=== PATIENT | female | born 2000 | race Caucasian/White ===

== ENCOUNTER 2025-09-18 06:47 | Emergency (ER) | payer OTHER, SELFPAY ==
--- OUTSIDE RECORDS SUMMARY | 2012-09-24 15:00 | XMS_ITS | Encounter Summary ---
Author Organization [facility] Address [address] [place] [address] Phone Care Team Providers Care Phone Operator Name Role Phone Unavailable Primary Care Provider Unavailabl e Encounter Details Date Type Department Care Team (Late st Contact Info) Description 09/24/2012 2:00 PM [facility] Hospital Encounter [facility] [address] [phone] Anca Antonio MD [address] [place] [phone] Social History Tobacco Use Types Packs/Day Years Used Date Smoking Tobacco: Never Smokeless Tobacco: Never Alcohol Use Standard Drinks/Week Comments Yes 2 (1 standard drink = 0.6 oz pur e alcohol) Hunger/Food Answer Date Recorded In the last 12 months, did y ou or your family ever eat less than you felt you should because there wasn't enough money for food? No 11/26/2023 Stable Housing Answer Date Recorded Are you worried that in the next 2 months you may not have stable housing? No 11/26/2023 Transportation Concerns Answer Date Rec orded In the last 12 months, have you or your family ever had to go without healthcare because you didn't have a way to get there? No 11/26/2023 Hazards in Home Answer Date Recorded Think about the place you li ve. Do you have problems with any of the following? Pests (mice or roaches), mold, no/not working smoke detectors, water leaks, no window guards. No 2023 Financing Utilities Answer Date Recorde d In the last 12 months, has t he electric, gas, oil, or water company threatened to shut off your services in your home? No 11/26/2023 Safety at Home Answer Date Recorded Are you or your family worried about feeling saf e in your home? No 11/26/2023 Outside Support Answer Date Recorded Do you feel that you need mo re support from other people or programs to help you care for yourself or your family? No 11/26/2023 Understanding Health Concerns Answer Da te Recorded Do you need help understandi ng your or your child's healthcare needs (diagnosis, medications, plan, etc.)? No 11/26/2023 Financing Health Concerns Answer Date R ecorded In the last 12 months, was t here a time when your child needed to see a doctor or get medications or supplies but could not because of cost? No 11/26/2023 Missing School or Work Answer Date Faizan rded Did you or your child miss s chool or work because of a health problem that could have been avoided? No 11/26/2023 Comments Unknown Sex and Gender Information Value Date Recorded Sex Assigned at Not on file Legal Sex Female 6:32 PM EDT Gender Identity Female 11/23/2022 9:44 AM EST Sexual Orientation Straight 02/10/2020 12 :46 PM EDT documented as of this encounter Functional Status documented as of this encounter Plan of Treatment Not on file documented as of this encounter Visit Diagnoses Not on filedocumented in this encounter
--- OUTSIDE RECORDS SUMMARY | 2017-10-07 01:00 | XMS_ITS | Encounter Summary ---
Author Organization [facility] Address [address] [place] [address] Phone Care Team Providers Care Fitter Hand Name Role Phone Unavailable Primary Care Provider Unavailabl e Encounter Details Date Type Department Care Team (Late st Contact Info) Description 10/07/2017 Hospital Encounter [facility] [address] [place] [phone] Anca Antonio MD [address] [place] [phone] Social History Tobacco Use Types Packs/Day Years [...]
--- OUTSIDE RECORDS SUMMARY | 2024-03-24 01:00 | XMS_ITS ---
Author Organization [facility] Address [address] [address] Care Team Providers Care Tool Repair Technician Name Role Phone NATALIA FRANCISCO, ERIN Primary Care Provider Tavo Soliz Unavailable [phone] REASON FOR VISIT ESTAB PT: OV FOR CHANGE IN BOWEL HABITS, NAUSEA, WT. LOSS, HEART BURN, NIGHT SWEATS (NO PRIOR) PCP NATALIA ROSSI [facility] Encounters Encounter Location Date Provider Diagnosis [facility] [address] [place] [phone] 03/24/2024 Tavo Sears Plan Of Treatment No Information Progress Notes * KAI NORTONOB:[birth year] (25 yo F)Acc No.[id number]:03/24/2024 Progress Notes Patient: ABY BOX Provider: Suzi Sears MD :2000 A ge:24 Y S ex:Female Date:03/24/2024 Address:[address], [place], [id number] Pcp:ERIN FISHER MD Subjective: * Chief Complaints: * 1 . ESTAB PT: OV FOR CHANGE IN BOWEL HABITS, NAUSEA, WT. LOSS, HEART BURN, NIGHT SWEATS (NO PRIOR) PCP NATALIA ROSSI [facility]. * Medical History: Objective: * Vitals: Assessment: Plan: * Treatment: * * Electronic signature of Mandeep Sears M.D. on 09/18/2025 at 07:54 AM EDT Sign off status: Pending * Provider: Suzi Sears MD Date: 0 03/24/2024 Generated for [place]oacanoi isaac/Anthony/eTransmitting on: 11/18/2024 07:54 AM EDT
--- OUTSIDE RECORDS SUMMARY | 2025-03-27 17:30 | XMS_ITS ---
Author Organization [facility] Address [address] [facility] [address] [place] [address] Care Team Providers Care Flight Purser Name Role Phone ERIN FISHER MD Primary Care Provider UnavailTavo Montelongo Unavailable [phone] Migration, Provider Unavailable Unavailable Allergies Allergen (clinical drug ingredient) Drug/Non Drug Allergy documented on EMR Reaction Allergy Type Onset Date Status hydrocortisone Hydrocortisone Unknown Drug Allergy Active Propylene Glycol Unknown Drug Allergy Active REASON FOR VISIT Multum To Medispan Conversion Encounter Medications Medication SIG (Take, Route, Fr equency, Duration) Notes Start Date End Date Status Omeprazole 20 MG 1 cap(s) orally once a day,take 30min before dinner; Duration: 30 days 01/10/2024 Active FLUoxetine HCl 40 MG 1 cap(s) orally onc e a day; Duration: 30 day(s) 12/17/2023 Active LORazepam 0.5 MG TAKE 1 TABLET BY SHANELL TH NEEDED FOR PANIC ATTACKS; Duration: 5 Days Active Encounters Encounter Location Date Provider Diagnosis [facility] [address] [facility] [address] [place] [address] 03/27/2025 Provider Migration Plan Of Treatment Medication Medication Name Sig Start Date Stop Date Notes Omeprazole 20 MG 1 cap(s) orally once a day,take 30min before dinner; Duration: 30 days 01/10/2024 Progress Notes * KAI NORTONOB:[birth year] (25 yo F)Acc No.[id number]:03/27/2025 Patient: ABY BOX Provider: :2000 A ge:25 Y S ex:Female Date:03/27/2025 Address:[address], [place], [id number] Pcp:ERIN FISHER MD Subjective: * Chief Complaints: * 1 . Multum To Medispan Conversion Encounter. * Medical History: * Medications: T aking LORazepam 0.5 MG Tablet TAKE 1 TABLET BY MOUTH NEEDED FOR PANIC ATTACKS , Taking FLUoxetine HCl 40 MG Capsule 1 cap(s) orally once a day * Allergies: H ydrocortisone, Propylene Glycol. Objective: * Vitals: Assessment: Plan: * Treatment: * * Electronic signature of Prov ider Migration on 09/18/2025 at 07:54 AM EDT Sign off status: Pending * Provider: Date: 0 03/27/2025 Generated for Sunil gray/Anthony/Pat on: 1 11/18/2024 07:54 AM EDT
[2025-09-18 06:51] VITALS: BP 141/87; PULSE 101; RESP 18; TEMP 36.7; O2SAT 100; BMI 23.5
--- NOTE | 2025-09-18 07:12 | ED.GENADULT ---
HPI - General Adult General Chief complaint: Anxiety Stated complaint: diff speaking vomiting panic attack Time Seen by Provider: 09/18/25 07:07 History of Present Illness HPI narrative: Patient is a 25-year-old female has a history of anxiety panic attacks. Also has a history of marijuana use. History of nausea vomiting for the last 5 hours. Patient from home. No fever no chills. No diaphoresis. Positive abdominal pain over the epigastric area. Patient claims she attempted to vomit about 20 times. Minimal results. There is no change in bowel movement there is no blood in the stool. Related Data Previous Rx's ?Medication ?Instructions ?Recorded ondansetron 4 mg disintegrating 4 mg PO TID PRN nausea and 09/18/25 tablet vomiting 5 days #10 tabs Allergies Allergy/AdvReac Type Severity Reaction Status Date / Time shellfish derived (shellfish) Allergy Hives Verified 09/18/25 06:55 iodine AdvReac Unknown Verified 09/18/25 06:55 latex AdvReac Unknown Verified 09/18/25 06:55 Review of Systems Review of Systems: Positive abdominal pain Yes all other systems are reviewed and are negative [facility] Past Medical History Attestation statement: The following information was validated with the patient. Social History Social History Smoked in Last 30 Days: No Use of substances other than those prescribed or required for medical reasons: Yes Substance Use Type: Marijuana Advance Directives: No Advance Directives Information Provided: Yes Patient : No Physical Exam ED Exam Exam: Appearance: Alert. Oriented X3. No acute distress. Eyes: Pupils equal, round and reactive to light. ENT: Pharynx normal. Neck: Normal inspection. Neck supple. No lymph nodes noted. No crepitus CVS: Normal heart rate and rhythm. Pulses normal. Normal S1 and S2 Respiratory: No respiratory distress. Breath sounds normal. No Wheezing. No rales Abdomen: Soft and nontender. No rigidity. No distention. good BS x4 Skin: Skin warm and dry. Normal skin color. Normal skin turgor. Extremities: No lower extremity edema. Neurovascular intact to all extremities. No Lacerations. No Rash Neuro: Oriented X 3. No motor deficit. No sensory deficit. Moving all extermities. No slurred speech Vital Signs: Vital Signs - 24 hr 09/18/25 06:51 09/18/25 08:25 Temperature 98.1 F Pulse Rate 101 H 95 Respiratory Rate 18 14 Blood Pressure 141/87 H 119/73 Pulse Oximetry 100 99 Oxygen Delivery Method Room Air Room Air BMI result Body Mass Index 23.5 Medications Administered Discontinued Medications Generic Name Dose Route Start Last Admin Trade Name Amadeoq PRN Reason Stop Dose Admin Droperidol 0.625 mg 09/18/25 07:07 09/18/25 07:27 Droperidol 5 Mg/2 Ml Vial IVPUSH 09/18/25 07:08 0.625 mg ONCE ONE Administration Sodium Chloride 1,000 mls @ 999 mls/hr 09/18/25 07:15 09/18/25 08:42 Ns IV 09/18/25 08:15 Infused .Q1H1M TEJ Infusion Sodium Chloride 1,000 mls @ 999 mls/hr 09/18/25 07:15 09/18/25 08:27 Ns IV 09/18/25 08:15 Infused .Q1H1M TEJ Infusion Lorazepam 0.5 mg 09/18/25 07:18 09/18/25 07:54 Lorazepam 0.5 Mg Tablet PO 09/18/25 07:19 0.5 mg ONCE ONE Administration Medical Decision Making Medical Decision Making MDM Narrative: Patient's symptom improved with anxiety medication. Symptoms completely resolved. Soft nontender labs are unremarkable does not want a CAT scan at this time I re-evaluated the patient's abdomen is completely soft nontender. [place] the risk of CT scan greater than the risk of appendicitis at this time. Will discharge patient home close follow-up advised a small dose of Zofran was given she is in stable condition with discharge home. Differential Diagnosis Differential Diagnoses: The differential diagnosis associated with the presentation includes It is, related issue, kidney stone Admission/Observation Consideration of admission/observation: Escalation of care including admission/observation considered Lab Data [facility] Lab Attestation statement: I reviewed the patient's lab results. 09/18/25 07:17 Labs: Lab Results 09/18/25 09/18/25 Range/Units 07:17 07:25 WBC 11.2 H (4.8-10.8) X10*3/uL RBC 4.82 (4.20-5.50) X10*6/uL Hgb 14.1 (12.0-16.0) g/dl Hct 39.7 (37.0-47.0) % MCV 82.4 (80.0-98.0) fL MCH 29.3 (27.0-33.0) pg MCHC 35.5 H (31.0-35.0) g/dl RDW 11.6 (11.0-16.0) % Plt Count 273 (160-400) X10*3/uL MPV 9.1 L (9.4-12.3) fL Immature Gran % (Auto) 0.4 (0.0-0.4) % Neut % (Auto) 68.4 (45-73) % Lymph % (Auto) 25.1 (20-40) % [place]ann[place] % (Auto) 5.5 (2-11) % Eos % (Auto) 0.1 (0-4) % Baso % (Auto) 0.5 (0-2) % Lymph # (Auto) 2.8 (1.2-4.9) X10*3/uL [place] # (Auto) 0.6 (0.1-1.2) X10*3/uL Eos # (Auto) 0.0 (0.0-0.4) X10*3/uL Baso # (Auto) 0.1 (0.0-0.2) X10*3/uL Abs Immat Gran (auto) 0.04 H (0.00-0.03) X10*3/uL Absolute Neuts (auto) 7.7 (2.0-8.3) x10*3/uL Absolute Nucleated RBC 0.000 (0.0-0.012) X10*3/uL Nucleated RBC % (auto) 0.0 (0.0-0.2) /100WBC Total Bilirubin 0.4 (0.0-1.0) mg/dL Direct Bilirubin 0.2 (0.0-0.5) mg/dL AST 27 (5-31) U/L ALT 13 (0-31) U/L Alkaline Phosphatase 49 (39-117) U/L Total Protein 7.5 (6.5-8.0) g/dL Albumin 5.2 H (3.5-5.0) g/dL Lipase 28 (8-78) U/L Urine Color Yellow Urine Appearance Clear Urine pH 8.5 (5.0-9.0) Ur Specific [place] 1.015 (1.005-1.025) Urine Protein Trace (Neg-Trace) mg/dL Urine Glucose (UA) Negative (Negative) mg/dL Urine Ketones 15 (Negative) mg/dL Urine Blood Negative (Negative) Urine Nitrite Negative (Negative) Ur Leukocyte Esterase Negative (Negative) Urine RBC 0-2 (0-2) /HPF Urine WBC 0-5 (0-5) /HPF Ur Squamous Epith Cells 0-2 (0-2) /HPF Urine Bacteria None Seen (None Seen) Hyaline Casts 0-2 (0-2) /LPF Urine Test NEGATIVE (NEGATIVE) Influenza Type A (PCR) NEGATIVE (Negative) Influenza Type B (PCR) NEGATIVE (Negative) RSV RNA Qual (PCR) NEGATIVE (Negative) SARS-CoV-2 RNA (RT-PCR) NEGATIVE (Negative) Prescription Management I considered prescription management with: Pain Medication Social Determinants Patient?s care significantly limited by Social Determinants of Health including: Problems related to primary support group Discharge Plan Discharge Clinical Impression: Acute anxiety Patient Disposition: Home, Self-Care Instructions: Anxiety (ED) Prescriptions: New ondansetron 4 mg tablet,disintegrating 4 mg PO TID PRN (Reason: nausea and vomiting) 5 Days Qty: 10 0RF Referrals: Physician,Unknown J [Primary Care Provider, Medical] Print Language: Upper Sorbian
[2025-09-18 07:23] LABS: MANUAL DIFF FLAG NO
[2025-09-18 07:25] LABS: Hematocrit 39.7 % (37.0-47.0); Hemoglobin 14.1 g/dl (12.0-16.0); Imm Gran Abs Auto 0.04 X10*3/uL (0.00-0.03); Imm Gran Pct Auto 0.4 % (0.0-0.4); Lymphocytes Absolute Auto 2.8 X10*3/uL (1.2-4.9); Mean Corpuscular HGB Conc 35.5 g/dl (31.0-35.0); Mean Corpuscular Hemoglobin 29.3 pg (27.0-33.0); Mean Corpuscular Volume 82.4 fL (80.0-98.0); NRBC Abs Auto 0.000 X10*3/uL (0.0-0.012); NRBC Pct Auto 0.0 /100WBC (0.0-0.2); Platelet Count 273 X10*3/uL (160-400); Red Blood Count 4.82 X10*6/uL (4.20-5.50); White Blood Count 11.2 X10*3/uL (4.8-10.8)
[2025-09-18 07:42] LABS: Appearance Urine Clear; Glucose Urine UA Negative (Negative); PH 8.5 (5.0-9.0); Specific Gravity - Urine 1.015 (1.005-1.025)
[2025-09-18 07:42] LABS: Alanine Aminotransferase 13 U/L (0-31); Albumin Level 5.2 g/dL (3.5-5.0); Alkaline Phosphatase 49 U/L (39-117); Aspartate Amino Transferase 27 U/L (5-31); Lipase 28 U/L (8-78); Total Protein 7.5 g/dL (6.5-8.0)
[2025-09-18 07:43] LABS: UPreg QC Valid YES
--- OUTSIDE RECORDS SUMMARY | 2025-09-18 07:54 | XMS_ITS | Encounter Summary ---
Author Organization [facility] Address [address] [place] [address] Phone Care Team Providers Care Airdox Fitter Name Role Phone Anca Antonio MD Primary Care Provider [phone] Encounter Details Date Type Department Care Team (Late st Contact Info) Description 03/22/2010 Documentation [facility] [address] [place] [address] Family Medicine, Physician [address] [place] [address] Social History Tobacco Use Types Packs/Day Years Used Date Smoking Tobacco: Never Assessed Comments Unknown Sex and Gender Information Value Date Recorded Sex Assigned at Not on file Legal Sex Female 6:32 PM EDT Gender Identity Female 11/23/2022 9:44 AM EST Sexual Orientation Straight 02/10/2020 12 :46 PM EDT documented as of this encounter Plan of Treatment Not on file documented as of this encounter Visit Diagnoses Not on filedocumented in this encounter Care Teams Airdox Fitter Relationship Specialty Start Date End Date Anca Antonio MD [address] [place] [id number] PCP - General 03/26/18 05/04/25 documented as of this encounter
--- OUTSIDE RECORDS SUMMARY | 2025-09-18 07:54 | XMS_ITS | Encounter Summary ---
Author Organization [facility] Address [address] [place] [address] Care Team Providers Care Spotlight Operator Name Role Phone Anca Antonio Primary Care Provider [phone] Encounter Details Date Type Department Care Team ([facility] st Contact Info) Description 01/23/2023 Orders Only [facility] [employer]TER [employer]PER[address] [facility] [address] [place] [address] Stella Fontenot NP [address] [place] [address] Social History Tobacco Use Types Packs/Day Years Used Date Smoking Tobacco: Never Smokeless Tobacco: Never Alcohol Use Standard Drinks/Week Comments Not Asked 0 (1 standard drink = 0.6 oz pur e alcohol) Comments No Sex and Gender Information Value Date Recorded Sex Assigned at Female 01/11/2023 9:47 AM EST Legal Sex Female 4:52 PM EST Gender Identity Female 01/11/2023 9:47 AM EST Sexual Orientation Straight 01/11/2023 9: 47 AM EST Occupation Industry Job Start Date Job End Date student, [employer] Not on file Not on file Not on file documented as of this encounter Miscellaneous Notes * Result Encounter Note - Stella Fontenot NP - 01/23/2023 12:48 PM EST Vaginal cx is positive for yeast, treat with diflucan, please inform pt of results and treatment plan * Result Encounter Note - Omar Vargas - 01/23/2023 12:48 PM EST See TE 01/25/2023 documented in this encounter Plan of Treatment Not on file documented as of this encounter Procedures * Due to [facility] law, this organization might not be sharing negative HIV tests. Procedure Name Priority Date/Time Associated Diagnosis Comments VAGINITIS PLUS, TMA Routine 01/23/2023 1 2:48 PM EST Vaginal bleeding documented in this encounter Results * Due to [place] [employer] law, this organization might not be sharing negative HIV tests. * (ABNORMAL) VAGINITIS PLUS, TMA (01/23/2023 12:48 PM EST) Bacterial Vaginosis (BV), TMA NEGATIVE NEGATIVE [facility] Reyna sp rRNA (Vag) DETECTED(A) NOT DETECTED [facility] REYNA GLABRATA NOT DETECTED NOT DETECTED [facility] Comment: Reyna species C. albicans, C. tropicalis, C. parapsilosis, and/or C. dubliniensis can be detected, but not differentiated, in the Reyna spp. result. Trichomonas vaginalis rRNA NOT DETECTED NOT DETECTED [facility] Chlamydia trachomatis rRNA NOT DETECTED NOT DETECTED [facility] Neisseria Gonorrhoeae rRNA NOT DETECTED NOT DETECTED [facility] Comment: For additional information, please refer to https://education.[employer] Home/faq/VBB393 (This link is being provided for information/ educational purposes only.) 01/23/2023 12:4 8 PM EST 01/23/2023 10:41 PM EST Narrative Resulting Agency Comment [id number] Stella Fontenot NP LABORATORY Final Result Performing Organization Address City/State/[facility] Co de Phone Number [facility] [address] [place] [address] documented in this encounter Visit Diagnoses Diagnosis Vaginal bleeding Other specified noninflammatory disorder of vagina documented in this encounter Care Teams Spotlight Operator Relationship Specialty Start Date End Date Anca Antonio [facility] [address] [place] [address] PCP - General Pediatrics 11/25/13 documented as of this encounter
--- OUTSIDE RECORDS SUMMARY | 2025-09-18 07:54 | XMS_ITS | Continuity of Care Document ---
Author Organization [facility] Address [address] [place] [address] Care Team Providers Care Social Science Manager Name Role Phone Anca Antonio Primary Care Provider [phone] Encounters Date Type Department Care Team Description 03/25/2025 Telephone [facility] Ultrasound [address] [place] [phone] Stella Fontenot SURVEY ANALYST Follow Up 02/16/2025 Telephone [facility] [address] [place] [phone] Myah Centeno [employer] [facility] Program 02/15/2025 Telephone [facility] BLOWER ROOM ATTENDANT [address] [phone] Stella Fontenot, SURVEY ANALYST Follow Up 01/27/2025 6:00 PM EDT Radiology [facility] Ultrasound [address] [place] [phone] Pelvic pain 01/07/2025 Telephone [facility] BLOWER ROOM ATTENDANT [address] [facility] [address] [place] [phone] Stella Fontenot, SURVEY ANALYST Results 01/06/2025 11:30 AM EST Office Visit [facility] BLOWER ROOM ATTENDANT [address] [facility] [address] [place] [phone] Stella Fontenot, SURVEY ANALYST Encounter for gynecological examination (general) (routine) without abnormal findings (Primary Dx); Pelvic pain; Vaginal discharge 10/09/2023 10:45 AM EST Office Visit [facility] BLOWER ROOM ATTENDANT [address] [facility] 150 [place] [phone] Leann Christianson PA Encounter for routine checking of intrauterine contraceptive device (IUD) (Primary Dx); Screening for malignant neoplasm of cervix 09/10/2023 1:30 PM EDT Minor Procedure/Test [facility] BLOWER ROOM ATTENDANT [address] [facility] [address] [place] [phone] Lalit Carter MD Encounter for removal and reinsertion of intrauterine contraceptive device (Primary Dx); examination or test, unconfirmed 01/25/2023 Telephone [facility] BLOWER ROOM ATTENDANT [address] [facility] [address] [place] [phone] Stella Fontenot NP Results 01/23/2023 Orders Only [facility] BLOWER ROOM ATTENDANT [address] [facility] [address] [place] [phone] Stella Fontenot NP 01/23/2023 7:45 AM EST Consult (Initial) [facility] BLOWER ROOM ATTENDANT [address] [facility] [address] [place] [address] Stella Fontenot NP Vaginal bleeding (Primary Dx) 01/14/2023 2:00 PM EST Radiology [facility] BLOWER ROOM ATTENDANT US [address] [facility] [address] [place] [address] Abnormal uterine bleeding (AUB); Breakthrough bleeding associated with intrauterine device (IUD) 01/11/2023 Telephone Central Registration [address] [place] [phone] Stella Fontenot NP Appointment (/Called patient to confirm active insurance but no answer, left VM with call back number. //Checked MH and no active coverage ) 01/08/2023 Telephone [facility] BLOWER ROOM ATTENDANT [address] [facility] 150 [place] [phone] Nohemy Monique CNM, SURVEY ANALYST Irregular Menses 06/25/2021 2:15 PM EDT Office Visit [address] [phone] Vero Hill NP Acute swimmer's ear of left side (Primary Dx); Mild intermittent asthma with exacerbation 06/20/2021 1:15 PM EDT Office Visit [facility] BLOWER ROOM ATTENDANT [address] [facility] [address] [place] [address] Phanetre, Nohemy, CNM, SURVEY ANALYST examination or test, unconfirmed (Primary Dx); Encounter for Nexplanon removal; Encounter for insertion of intrauterine contraceptive device 05/01/2021 10:45 AM EDT Radiology [facility] Xray [address] [place] [address] Cough; Wheezing 05/01/2021 10:15 AM EDT Office Visit [address] [phone] Paco Gillette PA Cough (Primary Dx); Wheezing 05/01/2021 Travel 06/22/2020 5:00 PM EDT Office Visit [address] [phone] Maribell Jarquin, RAJNI Soft tissue abscess (Primary Dx) 06/22/2020 Travel 08/08/2019 3:30 PM EDT Radiology [facility] Xray [address] [place] [address] Cough 08/08/2019 9:45 AM EDT Office Visit [address] [phone] Barry Tee PA Acute non-recurrent sinusitis, unspecified location (Primary Dx) 01/15/2019 12:00 PM EST [facility] [address] [place] [phone] Nohemy Monique, CNM, SURVEY ANALYST Insertion of implantable subdermal contraceptive (Primary Dx); examination or test, unconfirmed 01/13/2019 3:00 PM EST Office Visit [facility] [address] [place] [phone] Nohemy Monique, YVES, SURVEY ANALYST General counseling and advice for contraceptive management (Primary Dx) 12/11/[address] [phone] Richie Roger NP Cough 12/10/2017 7:00 PM EST Radiology [facility] Xray [address] [place], [place] [phone] Cough 12/10/2017 6:15 PM EST Office Visit [address] [phone] Paco Gillette PA Cough (Primary Dx); Fever, unspecified fever cause; Viral syndrome 10/29/2017 Orders Only [address] [phone] Bhavna Smart NP 10/29/2017 6:15 PM EST Radiology [facility] Xray [address] [place] [address] [phone] 10/29/2017 5:30 PM EST Office Visit [address] [phone] Bhavna Smart NP Influenza (Primary Dx); Sore throat; Cough 10/03/2016 3:15 PM EST Consult (Initial) [facility] [address] [place] [phone] Sarthak Castillo MD Allergic contact dermatitis due to other agents (Primary Dx); Acne, unspecified acne type; Congenital nevus 04/05/2015 Telephone [facility] [address] [place] [phone] Gatito Barnhart MD Other 04/04/2015 Telephone [facility] [address] [place] [phone] Lia Anthony RN Results 04/03/2015 12:15 PM EDT Radiology [facility] Xray [address] [place] [phone] Wrist injury, left, initial encounter 04/03/2015 11:00 AM EDT Office Visit [address] [phone] Ngozi Herrera NP Wrist injury, left, initial encounter (Primary Dx) 11/25/2013 5:30 PM EST Radiology [facility] [address] [place] [address] Right forearm pain 11/25/2013 5:00 PM EST Office Visit [facility] [address] [place] [phone] Kaia Mejia NP Right forearm pain (Primary Dx) Allergies Active Allergy Reactions Criticality Noted Date Comments Hydrocortisone 11/25/2013 Propyl Glycol-Hydroxyethylcell Urticarial Rash,Nausea/GI Upset 11/25/2013 Environmental 07/02/2018 Many topical agents, see scanned list Formaldehyde Maculopapular Rash Low 05/01/2021 Iodine Maculopapular Rash High 01/28/2019 Medications ALBUTEROL SULFATE (PROAIR HFA) 108 (90 BASE) MCG/ACT Aero Soln as needed Active FLUoxetine HCl (PROzac) 40 MG capsule Take 40 mg by mouth 05/09/2022 Active LORazepam (ATIVAN) 0.5 MG tablet TAKE 1 TABLET BY MOUTH NEEDED FOR PANIC ATTACKS 01/01/2023 Active Active Problems Problem Noted Date Diagnosed Date Anxiety 01/18/2021 Constipation, chronic 05/01/2016 Irritable bowel syndrome with diarrhea 6 Concussion 08/06/2014 Asthma ([facility]) 04/23/2012 Exercise-induced bronchospasm ([facility]) 05/11/2011 Allergy 05/10/2010 Immunizations Immunization Administration Dates Next Due COVID-19, mRNA (Moderna Pre Fall 2022) bivalent, 25 mcg/0.25 ml (6 months - 11 years) or 50 mcg/0.5 ml (12+ years) 07/08/2023,10/13/2022 COVID-19, mRNA (Pfizer Pre all 2022) Monovalent, 30 mcg/0.3 ml 10/18/2021,03/11/2021,02/18/2021 Covid-19, mRNA (Pfizer Comir millie) Seasonal, 30 mcg/0.3 mL (12+) 08/14/2024 HPV4 (Gardasil 4) 05/09/2015,05/07/2014 HPV9 (Gardasil 9) 05/10/2016 Hep A - 05/09/2015,05/07/2014 Hep B - 2002,2002,2002 Hep B-CpG (Heplisav) 02/15/2025 IPV 03/15/2006, 3,2002,04/07 Influenza (SEASONAL) - 08/16/2014,12/15/2012 Influenza,MDCK,trivalent,PF (Flucelvax) 08/13/2025 Influenza,injectable,MDCK, P rsrv Fr,Quad 07/08/2023,10/13/2022 Influenza,injectable,quad,Prsrv Fr 10/25,10/17/2020,02/10/2020,01/28 MMR 04/16/2007,02/12/2003 Meningococcal ACWY (Menactra) 01/28/2019, 013 PPV23 (Pneumovax) 10/25/2021 Td (adult), adsorbed 02/10/2020 Tdap 09/24/2023 Varicella 04/16/2007,02/12/2003 influenza,seasonal,trivalent ,PF (Fluzone, Fluarix, Flulaval) 08/14/2024 Family History Medical History Relation Name Comments Hypertension Father Hypertension Mother Relation Name Status Comments Father Alive Mother Alive Social History Smoking Status as of 09/18/2025 Tobacco Use Types Packs/Day Years Used Date Smoking Tobacco: Never Assessed Intimate Partner Violence Answer Date R ecorded Fear of Current or Ex-Partner Not on file Emotionally Abused Not on file 07/09/2023 Physically Abused Not on file 07/09/2023 Sexually Abused Not on file 07/09/2023 Feel Safe at Home Not on file 07/09/2023 Sex and Gender Information Value Date Recorded Sex Assigned at Female 01/11/2023 9:47 AM EST Legal Sex Female 4:52 PM EST Gender Identity Female 01/11/2023 9:47 AM EST Sexual Orientation Straight 01/11/2023 9: 47 AM EST Last Filed Vital Signs Vital Sign Reading Time Taken Comments Blood Pressure 120/80 01/06/2025 11:17 AM EST Pulse 89 06/25/2021 2:59 PM EDT Temperature 36.7 C (98 F) 06/25/2021 2:59 PM EDT Respiratory Rate 16 06/25/2021 2:59 PM EDT Oxygen Saturation 100% 06/25/2021 2:59 PM EDT Inhaled Oxygen Concentration - - Weight 62.1 kg (137 lb) 01/06/2025 11:17 AM EST Height 170.2 cm (5' 7 ) 01/06/2025 11:17 AM EST Body Mass Index 21.46 01/06/2025 11:17 AM EST Plan of Treatment Not on file Procedures * Due to [place] state law, this organization might not be sharing negative HIV tests. Procedure Name Priority Date/Time Associated Diagnosis Comments US PELVIC TRANSABD & TV Routine 01/27/2025 6:11 PM EDT Pelvic pain VAGINITIS PLUS, TMA Routine 01/06/2025 1 2:46 PM EST Vaginal discharge THINPREP TIS PAP (REFL) HPV MRNA E6/E7 Routine 10/09/2023 11:23 AM EST Screening for malignant neoplasm of cervix REMOVAL, INTRAUTERINE DEVICE Routine 09/10/2023 3:58 PM EDT Encounter for removal and reinsertion of intrauterine contraceptive device INSERTION, INTRAUTERINE DEVICE Routine 09/10/2023 3:58 PM EDT Encounter for removal and reinsertion of intrauterine contraceptive device VAGINITIS PLUS, TMA Routine 01/23/2023 1 2:48 PM EST Vaginal bleeding US TRANSVAGINAL (FOR BLOWER ROOM ATTENDANT DEPT USE ONLY) Routine 01/14/2023 2:03 PM EST Abnormal uterine bleeding (AUB) Breakthrough bleeding associated with intrauterine device (IUD) INSERTION, INTRAUTERINE DEVICE Routine 06/20/2021 2:34 PM EDT Encounter for insertion of intrauterine contraceptive device TEST, URINE - STATION Routine 06/20/2021 1:17 PM EDT examination or test, unconfirmed XRAY CHEST, 2 VIEWS, PA & LATERAL (DX: COUGH R05.9/ 786.2) FC STAT (All results called to provider) 05/01/2021 10:41 AM EDT Cough Wheezing XRAY CHEST, 2 VIEWS, PA & LATERAL FC Routine 08/08/2019 3:45 PM EDT Cough TEST, URINE - STATION Routine 01/15/2019 12:07 PM EST examination or test, unconfirmed XRAY CHEST, 2 VIEWS, PA & LATERAL (DX: COUGH R05.9/ 786.2) FC STAT (All results called to provider) 12/10/2017 6:57 PM EST Cough STREPTOCOCCUS, GROUP A CULTURE Routine 10/29/2017 8:08 PM EST Sore throat XRAY CHEST, 2 VIEWS, PA & LATERAL (DX: COUGH R05.9/ 786.2) FC STAT (All results called to provider) 10/29/2017 6:28 PM EST INFECTIOUS AGENT AG DETECTION BY IMMUNOASSAY W DIRECT OPTICAL OBSERVATION; STREPTOCOCCUS, GROUP A Routine 10/29/2017 5:39 PM EST Sore throat XRAY HAND MIN 3 VWS - LEFT ASAD 04/03/2015 12:13 PM EDT Wrist injury, left, initial encounter XRAY WRIST COMPLETE MIN 3 VWS - LEFT ASAD 04/03/2015 12:13 PM EDT Wrist injury, left, initial encounter XRAY FOREARM AP & LAT - RIGHT ASAD 11/25/2013 5:24 PM EST Right forearm pain Results * Due to [place] state law, this organization might not be sharing negative HIV tests. * US PELVIC TRANSABD & TV (01/27/2025 6:11 PM EDT) Anatomical Region Laterality Modality Pelvis Ultrasound Narrative 01/28/2025 1:25 PM EDT Patient History: pelvic pain, pt has mirena IUD CONTRAST: Transabdominal pelvic ultrasound performed. Transvaginal scanning subsequently performed for improved detail. Vascular Doppler assessment of the ovaries with duplex imaging provided. Comparison: None Findings: The uterus measures 8.2 x 3.4 x 4.0 cm. No uterine mass. The endometrium measures 5 mm. IUD within the fundus of the uterus in proper position. Normal right ovary. The right ovary measures 3.2 x 2.4 x 2.4 cm. Left ovarian cyst measuring 3.3 x 2.1 x 2.7 cm. The left ovary measures 4.5 x 3.0 x 4.1 cm. Arteriovenous flow bilateral ovaries. Impression: Left ovarian cyst. No follow-up required in this age group. Procedure Note Claude Alvarez MD - 01/28/2025 Patient History: pelvic pain, pt has mirena IUD CONTRAST: Transabdominal pelvic ultrasound performed. Transvaginal scanningsubsequently performed for improved detail. Vascular Doppler assessment ofthe ovaries with duplex imaging provided. Comparison: None Findings: The uterus measures 8.2 x 3.4 x 4.0 cm. No uterine mass. The endometrium measures 5 mm. IUD within the fundus of the uterus inproper position. Normal right ovary. The right ovary measures 3.2 x 2.4 x 2.4 cm. Left ovarian cyst measuring 3.3 x 2.1 x 2.7 cm. The left ovary measures4.5 x 3.0 x 4.1 cm. Arteriovenous flow bilateral ovaries. Impression: Left ovarian cyst. No follow-up required in this age group. us Stella Fontenot NP IMG US ORDERABLES Final Resu lt * (ABNORMAL) VAGINITIS PLUS, TMA (01/06/2025 12:46 PM EST) Only the most recent of2 resultswithin the time period is included. Bacterial Vaginosis (BV), TMA NEGATIVE NEGATIVE [facility] [...] Neisseria Gonorrhoeae rRNA NOT DETECTED NOT DETECTED [facility] Comment: For additional information, please refer to https://education.[place]ara/faq/WXT214 (This link is being provided for information/ educational purposes only.) 01/06/2025 12:4 6 PM EST 01/06/2025 10:53 PM EST Narrative Resulting Agency Comment [id number] tSella Fonteont NP LABORATORY Final Result Performing Organization Address City/State/[facility] Co de Phone Number [facility] [address] [place] [address] * THINPREP TIS PAP (REFL) HPV MRNA E6/E7 (10/09/2023 11:23 AM EST) Clinical information None given [facility] Date last menstrual period 09/10/2023 [facility] Date of previous PAP smear NONE GIVEN [facility] Date of previous biopsy NONE GIVEN [facility] Specimen source (Cvx/Vag) Cervix [facility] Statement of Adequacy (Cvx/Vag) Satisfactory for evaluation. Endocervical/trans formation zone component present. [facility] Cytology, Pap Smear Cytology Results: Negative for intraepithelial lesion or malignancy. [facility] Cytology study comment (Cvx/Vag) This Pap test has been evaluated with computer assisted technology. [facility] Transfer Operator (Cvx/Vag) MRS CT(ASCP) CT screening location: [facility] [address], [place] [address] Slide preparation performed at: [facility], [address] [place] [id number] CLIA No. [id number] [facility] COMMENT SEE NOTE [facility] Comment: EXPLANATORY NOTE: The Pap is a screening test for cervical cancer. It is not a diagnostic test and is subject to false negative and false positive results. It is most reliable when a satisfactory sample, regularly obtained, is submitted with relevant clinical findings and history, and when the Pap result is evaluated along with historic and current clinical information. Cervical 10/09/2023 11:2 3 AM EST 10/10/2023 3:50 AM EST Narrative Resulting Agency Comment [id number] us Leann [facility]BER[facility] PATHOLOGY-INTERFACED Final Res ult [facility] [address] [place] [address] * US TRANSVAGINAL (FOR BLOWER ROOM ATTENDANT DEPT USE ONLY)FC (01/14/2023 2:03 PM EST) Anatomical Region Laterality Modality Ultrasound Impressions 01/14/2023 2:20 PM EST : IUD Appears Properly Positioned. Uterus (6.8 X 4.6 X 2.9 cm) Bilateral Ovaries with Small Follicles. No Free Fluid RECOMMENDATIONS: Follow up plan per ordering provider. Reading Provider: Alek Holliday MD Narrative 01/14/2023 2:20 PM EST Images from the original result were not included. Reason for Ultrasound: IUD Surveillance AUB Method: transvaginal Anteverted uterus IUD seen within the endometrium Bilateral ovaries visualized with multiple follicles <2cm No fluid in CDS No adnexal masses seen at this time us Nohemy Phaneuf CNM, SURVEY ANALYST IMG US OBGYN ORDERABLES F inal Result * TEST, URINE - STATION (06/20/2021 1:17 PM EDT) Only the most recent of2 resultswithin the time period is included. HCG, Qualitative, Urine neg Neg Comment:[id number] exp 11/17 Urine 06/20/2021 1:17 PM EDT us Nohemy Phaneuf CNM, SURVEY ANALYST [facility] Final Res ult * XRAY CHEST, 2 VIEWS, PA & LATERAL (DX: COUGH R05/ 786.2) FC (05/01/2021 10:41 AM EDT) Only the most recent of3 resultswithin the time period is included. Anatomical Region Laterality Modality CHEST Computed Radiogr aphy 05/01/2021 10:5 7 AM EDT Narrative 05/01/2021 10:57 AM EDT CONTRAST: PA and lateral chest. Comparison: [facility] - 08/08/2019 03:27 PM EDT Findings: The cardiomediastinal silhouette is normal. Lungs are clear without consolidation or effusion. No acute osseous abnormality. Impression: No acute cardiopulmonary abnormality. Procedure Note Barry Mcghee MD - 05/01/2021 CONTRAST: PA and lateral chest. Comparison: - [facility] - 08/08/2019 03:27 PM EDT Findings: The cardiomediastinal silhouette is normal. Lungs are clear without consolidation or effusion. No acute osseous abnormality. Impression: No acute cardiopulmonary abnormality. Paco Gillette PA IMG XRAY NO CONTRAST ORDERABLES Final Result * XRAY CHEST, 2 VIEWS, PA & LATERAL FC (08/08/2019 3:45 PM EDT) Anatomical Region Laterality Modality CHEST Computed Radiogr aphy 08/12/2019 2:36 PM EDT Narrative 08/12/2019 2:36 PM EDT 2 view chest x-ray. Comparison: 12/10/2017 Findings: No consolidation or effusion. Cardiac and mediastinal contours are stable. Bones unremarkable. Impression: 1. No acute pulmonary disease. Procedure Note Segun Haas MD - 08/12/2019 2 view chest x-ray. Comparison: 12/10/2017 Findings: No consolidation or effusion. Cardiac and mediastinal contours are stable. Bones unremarkable. Impression: 1. No acute pulmonary disease. Barry CHAMBERLAIN IMG XRAY NO CONTRAST ORDERABLES Final Result * STREPTOCOCCUS, GROUP A CULTURE (10/29/2017 8:08 PM EST) Culture, Streptococci Group A, Throat SEE NOTE [facility] Comment: STREPTOCOCCUS, GROUP A CULTURE MICRO NUMBER: [id number] TEST STATUS: FINAL SPECIMEN SOURCE: NOT GIVEN SPECIMEN QUALITY: ADEQUATE RESULT: No group A Streptococcus isolated 10/29/2017 8:08 PM EST 10/29/2017 11:58 PM EST Narrative Resulting Agency Comment [id number] Bhavna Smart SURVEY ANALYST LABORATORY Final Result Performing Organization Address City/State/[facility] Co de Phone Number [facility] [address] [place] [address] * STREP THROAT (GROUP A) RAPID DETECTION - STATION (10/29/2017 5:39 PM EST) STREP GROUP A, RAPID (THROAT) neg Specimen from throat (specimen) 10/29/2017 5:39 PM EST Paco Gillette PA [facility] Final Result * XRAY HAND MIN 3 VWS - LEFT FC (04/03/2015 12:13 PM EDT) Anatomical Region Laterality Modality UPPER EXTREMITY Radiographic Madisyn ging 04/04/2015 7:56 AM EDT Narrative 04/04/2015 7:56 AM EDT 3 views of the LEFT hand. Indication: Pain. Prior: None Findings: No dislocation. There is suspected subtle widening of the growth plate involving base of the first metacarpal bone. No acute displaced fracture is identified. No abnormal soft tissue calcifications. Impression: Subtle widening of the growth plate involving base to the first metacarpal bone probably projectional, however subtle fracture cannot be entirely rule out. Clinical correlation and repeat radiograph if felt clinically appropriate is suggested. Procedure Note Mallory Acosta MD - 04/04/2015 3 views of the LEFT hand. Indication: Pain. Prior: None Findings: No dislocation. There is suspected subtle widening of the growth plate involving base of the first metacarpal bone. No acute displaced fracture is identified. No abnormal soft tissue calcifications. Impression: Subtle widening of the growth plate involving base to the first metacarpal bone probably projectional, however subtle fracture cannot be entirely rule out. Clinical correlation and repeat radiograph if felt clinically appropriate is suggested. Ngozi Govindkar SURVEY ANALYST IMG XRAY NO CONTRAST ORDERABLES Final Result * XRAY WRIST COMPLETE MIN 3 VWS - LEFT FC (04/03/2015 12:13 PM EDT) Anatomical Region Laterality Modality UPPER EXTREMITY Radiographic Madisyn ging 04/04/2015 7:45 AM EDT Narrative 04/04/2015 7:45 AM EDT 3 views of the LEFT wrist. Indication: Wrist pain. Findings: No fracture or dislocation. Nondisplaced fractures may be difficult to visualize initially and cannot be excluded. Follow-up should be obtained based on the clinical symptoms. Impression: As above Procedure Note Mallory Acosta MD - 04/04/2015 3 views of the LEFT wrist. Indication: Wrist pain. Findings: No fracture or dislocation. Nondisplaced fractures may be difficult to visualize initially and cannot be excluded. Follow-up should be obtained based on the clinical symptoms. Impression: As above Ngozi Herrera NP IMG XRAY NO CONTRAST ORDERABLES Final Result * XRAY FOREARM AP & LAT - RIGHT FC (11/25/2013 5:24 PM EST) Anatomical Region Laterality Modality UPPER EXTREMITY Radiographic Madisyn ging 11/25/2013 5:40 PM EST Narrative 11/25/2013 5:40 PM EST EXAM: XRAY FOREARM AP T LAT - RIGHT FC CLINICAL HISTORY: right forearm pain FINDINGS: No acute fracture is seen. No previous films are available for comparison. IMPRESSION: No fracture seen. Procedure Note Dilma Solares MD - 11/25/2013 EXAM: XRAY FOREARM AP T LAT - RIGHT FC CLINICAL HISTORY: right forearm pain FINDINGS: No acute fracture is seen. No previous films are available for comparison. IMPRESSION: No fracture seen. us Kaia Villalpandoessie SURVEY ANALYST IMG XRAY NO CONTRAST ORDERABL ES Final Result Visit Diagnoses Diagnosis Start Date Right forearm pain Pain in limb 11/25/2013 Right forearm pain Pain in limb 11/25/2013 Wrist injury, left, initial encounter 04/03/2015 Wrist injury, left, initial encounter 04/03/2015 Allergic contact dermatitis due to other agents 10/03/2016 Acne, unspecified acne type 10/03/2016 Congenital nevus Benign neoplasm of skin, site unspecified 10/03/2016 Sore throat Acute pharyngitis 10/29/2017 Sore throat Acute pharyngitis 10/29/2017 Cough 10/29/2017 Influenza Influenza with other respiratory manifestations 10/29/2017 Cough 12/10/2017 Cough 12/10/2017 Fever, unspecified fever cause 12/10/2017 Viral syndrome Unspecified viral infection, in conditions classified elsewhere and of unspecified site 12/10/2017 Pneumonia of lower lobe due to infectious organism, unspecified laterality 12/11/2017 General counseling and advice for contraceptive management 01/13/2019 examination or test, unconfirmed 01/15/2019 Insertion of implantable subdermal contraceptive 01/15/2019 Cough 08/08/2019 Acute non-recurrent sinusitis, unspecified location 08/08/2019 Soft tissue abscess Cellulitis and abscess of other specified site 06/22/2020 Cough 05/01/2021 Wheezing 05/01/2021 Cough 05/01/2021 Wheezing 05/01/2021 examination or test, unconfirmed 06/20/2021 Encounter for Nexplanon removal Surveillance of previously prescribed implantable subdermal contraceptive 06/20/2021 Encounter for insertion of intrauterine contraceptive device 06/20/2021 Acute swimmer's ear of left side 06/25/2021 Mild intermittent asthma with exacerbation (HHS) Unspecified asthma, with exacerbation 06/25/2021 IUD (intrauterine device) in place Presence of intrauterine contraceptive device 01/08/2023 Abnormal uterine bleeding (AUB) 01/14/2023 Breakthrough bleeding associated with intrauterine device (IUD) 01/14/2023 Vaginal bleeding Other specified noninflammatory disorder of vagina 01/23/2023 Vaginal bleeding Other specified noninflammatory disorder of vagina 01/23/2023 Yeast infection Other and unspecified mycoses 01/25/2023 examination or test, unconfirmed 09/10/2023 Encounter for removal and reinsertion of intrauterine contraceptive device 09/10/2023 Screening for malignant neoplasm of cervix Screening for malignant neoplasm of the cervix 10/09/2023 Encounter for routine checking of intrauterine contraceptive device (IUD) 10/09/2023 Pelvic pain Reserved for inherently not codable concepts WITHOUT codable children 01/06/2025 Vaginal discharge Leukorrhea, not specified as infective 01/06/2025 Encounter for gynecological examination (general) (routine) without abnormal findings 01/06/2025 Pelvic pain Reserved for inherently not codable concepts WITHOUT codable children 01/27/2025 Care Teams Social Science Manager Relationship Specialty Start Date End Date Anca Antonio [facility] [address] [place] [phone] PCP - General Pediatrics 11/25/13
--- OUTSIDE RECORDS SUMMARY | 2025-09-18 07:54 | XMS_ITS | Encounter Summary ---
Author Organization [facility] Address [address] [place] [address] Care Team Providers Care Resource Engineer Name Role Phone Anca Antonio Primary Care Provider [phone] Reason for Visit * Reason Comments Appointment Called patient to co nfirm active insurance but no answer, left VM with call back number. Checked MH and no active coverage Encounter Details Date Type Department Care Team ([facility] Contact Info) Description 01/11/2023 Telephone Central Registration [address] [place] [address] Stella Fontenot, MEDICAL RECORDS COORDINATOR [address] [place], [place] [id number] Appointment (/Called patient to confirm active insurance but no answer, left VM with call back number. //Checked MH and no active coverage ) Social History Tobacco Use Types Packs/Day Years [...] Orientation Straight 01/11/2023 9: 47 AM EST documented as of this encounter Miscellaneous Notes * Telephone Encounter - Radha Hill - 01/11/2023 4:51 PM EST PSS attempted to call pt about her insurance not being active. No answer pss left message on VM. * Telephone Encounter - [place] Bhatt - 01/11/2023 2:42 PM EST Called patient to confirm active insurance but no answer, left VM with call back number. Checked MH and no active coverage documented in this encounter Plan of Treatment Not on file documented as of this encounter Visit Diagnoses Not on filedocumented in this encounter Care Teams Resource Engineer Relationship Specialty Start Date End Date nAca Antonio [facility] [address] [place] [id number] PCP - General Pediatrics 11/25/13 documented as of this encounter
--- OUTSIDE RECORDS SUMMARY | 2025-09-18 07:54 | XMS_ITS | Clinical Summary ---
Author Organization [facility] Address [address] [place] [address] Care Team Providers Care Pocket Setter Name Role Phone Edmond Murphy MD Primary Care Provi james Allergies Active Allergy Reactions Criticality Noted Date Comments Formaldehyde Rash Latex, Natural Rubber 08/18/2018 Added based on information entered during case entry, please review and add reactions, type, and severity as needed Propylene Glycol Rash,Vomiting Shellfish Derived Hives 06/29/2025 Tree Nut Hives 06/29/2025 Medications albuterol 2.5 mg/3 mL (0.083%) nebulizer solution Inhale 1 vial via nebulizer every 6 hours as needed for wheezing or shortness of breath. Active albuterol (PROAIR HFA,VENTOLIN HFA) 90 mcg inhaler Inhale 2 puffs by mouth every 6 hours as needed for wheezing. Use with spacer. Active FLUoxetine (PROzac) 40 mg capsule Take 60 mg by mouth once a day. 2 Active LORazepam (ATIVAN) 0.5 mg tablet Take 0.5 mg by mouth as needed. Active lamoTRIgine (LaMICtal) 25 mg tablet Take 25 mg by mouth 2 times a day. 5 Active hydrOXYzine HCL (ATARAX) 10 mg tablet Take 10 mg by mouth at bed time. Active levonorgestreL (Mirena) 21 mcg/24hr (up to 8 yrs) 52 mg 5 year intrauterine device Active triamcinolone acetonide (KENALOG) 0.1% ointment APPLY DAILY TO SKIN TO AFFECTED AREA TWICE A DAY FOR 2 WEEKS 4 Active Active Problems Problem Noted Date Diagnosed Date OCD (obsessive compulsive disorder) 06/29/2025 Panic disorder 06/29/2025 Anxiety 01/18/2021 Constipation, chronic 05/01/2016 Irritable bowel syndrome with diarrhea 6 Health counseling 05/01/2016 Gastroesophageal reflux dise ase, esophagitis presence not specified 12/20/2015 Asthma 04/23/2012 Eczema 12/12/2009 Resolved Problems Problem Noted Date Diagnosed Date Resolved Date Tibial tendinitis, posterior, right 08/18/2018 06/29/2025 Overview (08/18/2018): Added automatically from request for surgery [id number] Abnormal laboratory test result 05/01/2016 06/29/2025 Hematochezia 12/20/2015 06/29/2025 Diarrhea 12/20/2015 06/29/2025 Nausea 12/20/2015 06/29/2025 Buckle fracture of radius 04/08/2015 Hand pain 04/07/2015 06/29/2025 Contact dermatitis 12/28/2009 Encounters Date Type Department Care Team Description 07/30/2025 Results Follow-Up [facility] Internal Medicine [address] [place] [address] [phone] Edmond Murphy MD 07/30/2025 myChart Message [facility] [address] [place] [address] [phone] Mychart, Generic Provider Appointment 07/29/2025 myChart Message Intial Department [address] [place] [address] [phone] Mychart, Generic Provider Questionnaire Submission 07/29/2025 myChart Message [facility] [address] [place] [address] [phone] Edmond Murphy MD Blood Sugar 06/29/2025 1:30 PM EDT Office Visit [facility] [address] [place] [address] [phone] Edmond Murphy MD Encounter to establish care with new doctor (Primary Dx) 06/28/2025 9:30 AM EDT Follow-Up [facility] 4th floor Cardiology Medicine [address] [place] [address] [phone] Liquid Loader: Paula Turpin PA Elevated blood pressure reading (Primary Dx); Nonrheumatic mitral valve regurgitation from Last 3 Months Family History Medical History Relation Name Comments No Known Problems Brother Hyperlipidemia Father Family histor y of High cholesterol /Family History of asthma Hypertension Father No Known Problems Maternal Grandfather No Known Problems Maternal Grandmother Asthma Mother Eczema Mother Hyperlipidemia Mother Hypertension Mother No Known Problems Paternal Grandfather No Known Problems Paternal Grandmother No Known Problems Sister Relation Name Status Comments Brother Father Alive Maternal Grandfather Maternal Grandmother Alive Mother Alive Paternal Grandfather Paternal Grandmother Sister Social History Tobacco Use Types Packs/Day Years Used Date Smoking Tobacco: Never Smokeless Tobacco: Never Tobacco Cessation:Counseling Given: Not Answered Comments:: Alcohol Use Standard Drinks/Week Comments Yes 0 (1 standard drink = 0.6 oz pur e alcohol) [facility] Utilities Answer Date Recorded In the past 12 months has th e electric, gas, oil, or water company threatened to shut off services in your home? No 06/29/2025 Hunger Vital Sign Answer Date Recorded Within the past 12 months, y ou worried that your food would run out before you got the money to buy more. Never true 06/29/20 25 Within the past 12 months, t he food you bought just didn't last and you didn't have money to get more. Never true 06/29/2025 Transportation Answer Date Recorded In the past 12 months, has l ack of reliable transportation kept you from medical appointments, meetings, work or from getting things needed for daily living? No 06/29/2025 Housing Answer Date Recorded Housing Risk Low 1 06/28/2025 Housing Risk Medium 1 06/28/2025 Housing Risk High Not on file 06/28/2025 What is your living situation today? 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 Not on file Not on file Last Filed Vital Signs Vital Sign Reading Time Taken Comments Blood Pressure 132/81 06/29/2025 1:24 PM EDT Pulse 82 06/29/2025 1:24 PM EDT Temperature 37.3 C (99.2 F) 06/29/2025 1:24 PM EDT Respiratory Rate 17 06/28/2025 9:26 AM EDT Oxygen Saturation 99% 06/29/2025 1:24 PM EDT Inhaled Oxygen Concentration - - Weight 68.9 kg (151 lb 12.8 oz) 06/29/2025 1:24 PM EDT Height 169.5 cm (5' 6.73 ) 06/29/2025 1:24 PM ED T Body Mass Index 23.97 06/29/2025 1:24 PM EDT Plan of Treatment Upcoming Encounters Date Type Department Care Team (Late st Contact Info) Description 08/30/2026 8:20 AM EDT Follow-Up [facility] 4th floor Cardiology Medicine [address] [place] [address] [phone] Liquid Loader: Bryanna Rahman, Barry Hand MD [address] [place] [address] [phone] Health Maintenance Due Date Last Done Comments Depression Screening and Follow-Up 11/18/2024 COVID-19 Vaccine (2024-2 6 season) 2025 08/14/2024, 07/08/2023, 10/13/2022, Additional history exists Influenza Vaccine (#1) 2025 , 07/08/2023, 10/13/2022, Additional history exists Social Drivers of Health Nikole ual Screening 06/29/2026 06/29/2025 Chlamydia Screening 07/27/2026 07/27/2025 Pap Smear 10/09/2026 10/09/2023 DTaP,Tdap,and Td Vaccines (9 - Td or Tdap) 09/24/2033 09/24/2023, 02/10/2020, 04/27/2013, Additional history exists Pneumococcal Vaccine: Pediat jacob (0-5 Years) and At-Risk Patients (6-50 Years) (2 of 2 - PCV20 or PCV21) 02/06/2052 10/25/2021, 05/19/2003, 2002, Additional history exists RSV Vaccine (60+ years old a nd patients) (1 - 1-dose 75+ series) 2077 Varicella Vaccines Completed 04/16/2007, 02/12/2003 HPV Vaccines Completed 05/09/2015, 05/07/2014 Meningococcal Vaccine Completed 01/28/2019, 013 Hepatitis B Vaccines Completed 02/15/2025, 2002, 2002, Additional history exists Alcohol/Substance Use Screening Completed HIV Screening Completed 07/27/2025 Hepatitis C Screening Completed 07/27/2025 Procedures * Due to [place] state law, this organization might not be sharing negative HIV tests. Procedure Name Priority Date/Time Associated Diagnosis Comments HIV-1/2 ANTIGEN/ANTIBODIES 4TH GENERATION W/REFLEX Routine 07/27/2025 11:12 AM EDT Screening for human immunodeficiency virus RPR (DIAGNOSIS) W/REFLEX TO TITER & TPPA [id number] Routine 07/27/2025 11:12 AM EDT Encounter for annual physical exam CHLAMYDIA/NEISSERIA GONORRHEA RNA Routine 07/27/2025 11:12 AM EDT Encounter for annual physical exam HEPATITIS C ANTIBODY W/REFLEX TO HCV RNA, QUANTITATIVE PCR Routine 07/27/2025 11:12 AM EDT Need for hepatitis C screening test HEPATITIS B SURFACE ANTIGEN W/CONFIRMATION Routine 07/27/2025 11:12 AM EDT Need for hepatitis B screening test HEPATITIS B SURFACE ANTIBODY Routine 07/27/2025 11:12 AM EDT Need for hepatitis B screening test HEPATITIS B CORE ANTIBODY, TOTAL Routine 07/27/2025 11:12 AM EDT Need for hepatitis B screening test VARICELLA ZOSTER ANTIBODY, IGG Routine 07/27/2025 11:12 AM EDT Encounter for annual physical exam TSH REFLEX FREE T4 Routine 07/27/2025 11 :12 AM EDT Screening for thyroid disorder COMPREHENSIVE METABOLIC PANEL Routine 07/27/2025 11:12 AM EDT Encounter for annual physical exam CBC AUTO DIFFERENTIAL Routine 07/27/2025 11:12 AM EDT Encounter for annual physical exam from Last 3 Months Results * Due to [place] state law, this organization might not be sharing negative HIV tests. * Chlamydia/Neisseria gonorrhoeae RNA (07/27/2025 11:12 AM EDT) Pathologist [facility] Chlamydia trachomatis RNA, TMA NOT DETECTED NOT DETECTED 07/28/2025 8:20 PM EDT [employer] [facility] Neisseria Gonorrhoeae RNA, TMA NOT DETECTED NOT DETECTED 07/28/2025 8:20 PM EDT [employer] [facility] Comment: The analytical performance characteristics of this assay, when used to test SurePath(TM) specimens have been determined by [employer]. The modifications have not been cleared or approved by the FDA. This assay has been validated pursuant to the CLIA regulations and is used for clinical purposes. For additional information, please refer to https://education.Shellcatch/faq/IIC218 (This link is being provided for information/ educational purposes only.) Urine Voided urine specimen / Unknown 07/27/2025 11:12 AM EDT 07/28/2025 12:26 PM EDT Narrative [facility] - 07/28/2025 8:25 PM EDT FASTING:NO us Edmond Murphy MD LAB URINE ORDERABLE S Final Result [facility] [address] Floor, [place] [address], [place] [phone] [employer] [facility] [address] [place] [address] * RPR (Diagnosis) w/Reflex to Titer & TPPA Confirm (07/27/2025 11:12 AM EDT) RPR W/Refl Titer NON-REACT TIFFANI NON-REACT TIFFANI 07/28/2025 10:18 AM EDT [employer] [facility] Blood Structure of peripheral vein / Unknown 07/27/2025 11:12 AM EDT 07/28/2025 1:02 AM EDT Narrative [facility] - 07/28/2025 8:25 PM EDT FASTING:NO us Edmond Murphy MD LAB BLOOD ORDERABLE S Final Result Performing Organization Address City/[facility]/ZIP Co de Phone Number [facility] [address], [facility] [place] [address], [place] [phone] [employer] [facility] [address] [place] [address] * TSH Reflex Free T4 (07/27/2025 11:12 AM EDT) TSH 0.57 mIU/L 07/28/2025 3:30 AM EDT [employer] [facility] Comment: Reference Range > or = 20 Years 0.40-4.50 Ranges First trimester 0.26-2.66 Second trimester 0.55-2.73 Third trimester 0.43-2.91 Blood Structure of peripheral vein / Unknown 07/27/2025 11:12 AM EDT 07/28/2025 12:22 AM EDT Narrative [facility] - 07/28/2025 8:25 PM EDT FASTING:NO us Edmond Murphy MD LAB BLOOD ORDERABLE S Final Result [facility] [address], [place] [address], [place] [phone] [facility] [employer] [address] [address] * CBC Auto Differential (07/27/2025 11:12 AM EDT) [facility] White Blood Cell Count 5.2 3.8 - 10.8 Thousand/ uL 07/28/2025 12:39 AM EDT [employer] [facility] Red Blood Cell Count 4.94 3.80 - 5.10 Million/u L 07/28/2025 12:39 AM EDT [employer] [facility] Hemoglobin 14.4 11.7 - 15.5 g/dL 07/28/2025 12:39 AM EDT [employer] [facility] Hematocrit 43.3 35.0 - 45.0 % 07/28/2025 12:39 AM EDT [employer] [facility] MCV 87.7 80.0 - 100.0 fL 07/28/2025 12:39 AM EDT [employer] [facility] MCH 29.1 27.0 - 33.0 pg 07/28/2025 12:39 AM EDT [employer] [facility] MCHC 33.3 32.0 - 36.0 g/dL 07/28/2025 12:39 AM EDT [employer] [facility] Comment: For adults, a slight decrease in the calculated MCHC value (in the range of 30 to 32 g/dL) is most likely not clinically significant; however, it should be interpreted with caution in correlation with other red cell parameters and the patient's clinical condition. RDW 12.3 11.0 - 15.0 % 07/28/2025 12:39 AM EDT [employer] [facility] Platelet Count 283 140 - 400 Thousand/ uL 07/28/2025 12:39 AM EDT [employer] [facility] MPV 10.0 7.5 - 12.5 fL 07/28/2025 12:39 AM EDT [employer] [facility] Absolute Neutrophils 2,512 1,500 - 7,800 cells/uL 07/28/2025 12:39 AM [employer] [facility] Absolute Lymphocytes 2,272 850 - 3,900 cells/uL 07/28/2025 12:39 AM EDT [employer] [facility] Absolute Monocytes 364 200 - 950 cells/uL 07/28/2025 12:39 AM EDT [employer] [facility] Absolute Eosinophils 31 15 - 500 cells/uL 07/28/2025 12:39 AM EDT [employer] [facility] Absolute Basophils 21 0 - 200 cells/uL 07/28/2025 12:39 AM EDT [employer] [facility] Neutrophils 48.3 % 07/28/2025 12:39 AM EDT [employer] [facility] Lymphocytes 43.7 % 07/28/2025 12:39 AM EDT [employer] [facility] Monocytes 7.0 % 07/28/2025 12:39 AM EDT [employer] [facility] Eosinophils 0.6 % 07/28/2025 12:39 AM EDT [employer] [facility] Basophils 0.4 % 07/28/2025 12:39 AM EDT [employer] [facility] Blood Structure of peripheral vein / Unknown 07/27/2025 11:12 AM EDT 07/28/2025 12:05 AM EDT [facility] - 07/28/2025 8:25 PM EDT FASTING:NO Edmond Murphy MD LAB BLOOD ORDERABLE S Final Result [facility] 200 [facility] 3rd Floor, [place] [address], [employer] [facility] [address] [place] [address] * Hepatitis C Antibody w/Reflex to HCV RNA, Quantitative PCR (07/27/2025 11:12 AM EDT) Hepatitis C Antibody NON-REACT TIFFANI NON-REACT TIFFANI 07/28/2025 3:43 AM EDT [facility] [employer] [facility] Comment: HCV antibody was non-reactive. There is no laboratory evidence of HCV infection. In most cases, no further action is required. However, if recent HCV exposure is suspected, a test for HCV RNA (test code 02307) is suggested. For additional information please refer to http://education.Shellcatch/faq/KPZ37k2 (This link is being provided for informational/ educational purposes only.) Blood Structure of peripheral vein / Unknown 07/27/2025 11:12 AM EDT 07/28/2025 12:22 AM EDT Narrative [facility] - 07/28/2025 8:25 PM EDT FASTING:NO us Edmond Murphy MD LAB BLOOD ORDERABLE S Final Result Performing Organization Address City[facility]/ZIP Co de Phone Number [facility] [address], [place] [address], [place] [phone] [employer] [address] [address] * Hepatitis B Core Antibody, Total (07/27/2025 11:12 AM EDT) Hepatitis B Core Ab Total NON-REACT TIFFANI NON-REACT TIFFANI 07/28/2025 3:43 AM EDT [employer] [facility] Comment: For additional information, please refer to http://education.Shellcatch/faq/KQM405 (This link is being provided for informational/ educational purposes only.) Blood Structure of peripheral vein / Unknown 07/27/2025 11:12 AM EDT 07/28/2025 12:22 AM EDT Narrative [facility] - 07/28/2025 8:25 PM EDT FASTING:NO us Edmond Murphy MD LAB BLOOD ORDERABLE S Final Result Performing Organization Address [facility] de Phone Number [facility] [address], [place] [address], [place] [phone] [employer] [employer] [address] [address] * HIV-1/2 Antigen/Antibodies 4th Generation w/Reflex (07/27/2025 11:12 AM EDT) HIV Final Interp HIV NEGATIVE 07/28/2025 3:31 AM EDT [employer] [facility] Comment: HIV-1 antigen and HIV-1/HIV-2 antibodies were not detected. There is no laboratory evidence of HIV infection. Blood Structure of peripheral vein / Unknown 07/27/2025 11:12 AM EDT 07/28/2025 12:24 AM EDT Narrative [facility] - 07/28/2025 8:25 PM EDT FASTING:NO us Edmond Murphy MD LAB BLOOD ORDERABLE S Final Result Performing Organization Address [facility]/ZIP Co de Phone Number [facility] [address], [facility] [place] [address], [place] [phone] [employer] [address] [address] * Hepatitis B Surface Antibody (07/27/2025 11:12 AM EDT) Hepatitis B Surface Ab Immunity, Qn 447 > OR = 10 mIU/mL 07/28/2025 3:42 AM EDT [employer] [facility] Comment: PATIENT HAS IMMUNITY TO HEPATITIS B VIRUS. For additional information, please refer to http://[facility].Shellcatch/faq/IRJ812 (This link is being provided for informational/ educational purposes only). Blood Structure of peripheral vein / Unknown 07/27/2025 11:12 AM EDT 07/28/2025 12:22 AM EDT Narrative [facility] - 07/28/2025 8:25 PM EDT FASTING:NO us Edmond Murphy MD LAB BLOOD ORDERABLE S Final Result Performing Organization Address [facility] de Phone Number [facility] [address], [place] [address], [place] [phone] [employer] [facility] [address] [place] [address] * Hepatitis B Surface Antigen W/Confirmation (07/27/2025 11:12 AM EDT) Hepatitis B Surface Antigen NON-REACT TIFFANI NON-REACT TIFFANI 07/28/2025 3:43 AM EDT [employer] [facility] Comment: For additional information, please refer to http://[facility].Shellcatch/faq/OJU475 (This link is being provided for informational/ educational purposes only.) Blood Structure of peripheral vein / Unknown 07/27/2025 11:12 AM EDT 07/28/2025 12:22 AM EDT Narrative [facility] - 07/28/2025 8:25 PM EDT FASTING:NO Edmond Murphy MD LAB BLOOD ORDERABLE S Final Result [facility] [address], [place] [address], [employer] [address] [address] * (ABNORMAL) Varicella Zoster Antibody, IgG (07/27/2025 11:12 AM EDT) [facility] Varicella Zoster Virus Antibody <1.00(L) S/CO 07/28/2025 6:21 AM EDT [employer] [facility] Comment: Signal to Cut-off S/CO Interpretation --------- <1.00 Negative - Antibody not detected > or = 1.00 Positive - Antibody detected A positive result indicates that the patient has antibody to VZV but does not differentiate between an active or past infection. The clinical diagnosis must be interpreted in conjunction with the clinical signs and symptoms of the patient. This assay reliably measures immunity due to previous infection but may not be sensitive enough to detect antibodies induced by vaccination. Thus, a negative result in a vaccinated individual does not necessarily indicate susceptibility to VZV infection. A more sensitive test for vaccination-induced immunity is Varicella Zoster Virus Antibody Immunity Screen, ACIF. Blood Structure of peripheral vein / Unknown 07/27/2025 11:12 AM EDT 07/28/2025 12:26 AM EDT Narrative [facility] - 07/28/2025 8:25 PM EDT FASTING:NO Edmond Murphy MD LAB BLOOD ORDERABLE S Final Result Performing Organization Address [facility]/ZIP Co de Phone Number [facility] [address], [place] [address], [employer] [address] [address] * Comprehensive Metabolic Panel (07/27/2025 11:12 AM EDT) [facility] Glucose 71 65 - 139 mg/dL 07/28/2025 5:42 AM EDT [employer] [facility] Comment: Non-fasting reference interval BUN 15 7 - 25 mg/dL 07/28/2025 5:42 AM EDT [employer] [facility] Creatinine 0.77 0.50 - 0.96 mg/dL 07/28/2025 5:42 AM EDT [employer] [facility] eGFR 111 > OR = 60 mL/min/1. 73m2 07/28/2025 5:42 AM [employer] [facility] Bun/Creatinine Ratio SEE NOTE: 6 - 22 (calc) 07/28/2025 5:42 AM [employer] [facility] Comment: Not Reported: BUN and Creatinine are within reference range. Sodium 141 135 - 146 mmol/L 07/28/2025 5:42 AM [employer] [facility] Comment: Verified by repeat analysis. Potassium 3.7 3.5 - 5.3 mmol/L 07/28/2025 5:42 AM [employer] [facility] Comment: Verified by repeat analysis. Chloride 104 98 - 110 mmol/L 07/28/2025 5:42 AM [employer] [facility] Comment: Verified by repeat analysis. Carbon Dioxide 29 20 - 32 mmol/L 07/28/2025 5:42 AM [employer] [facility] Calcium 9.1 8.6 - 10.2 mg/dL 07/28/2025 5:42 AM [employer] [facility] Protein, Total 7.0 6.1 - 8.1 g/dL 07/28/2025 5:42 AM [employer] [facility] Albumin 4.7 3.6 - 5.1 g/dL 07/28/2025 5:42 AM [employer] [facility] Globulin 2.3 1.9 - 3.7 g/dL (calc) 07/28/2025 5:42 AM [employer] [facility] Albumin/Globuli n Ratio 2.0 1.0 - 2.5 (calc) 07/28/2025 5:42 AM [employer] [facility] Bilirubin, Total 0.8 0.2 - 1.2 mg/dL 07/28/2025 5:42 AM EDT [employer] [facility] Alkaline Phosphatase 39 31 - 125 U/L 07/28/2025 5:42 AM EDT [employer] [facility] AST 17 10 - 30 U/L 07/28/2025 5:42 AM EDT [employer] [facility] ALT 11 6 - 29 U/L 07/28/2025 5:42 AM EDT [employer] [facility] Blood Structure of peripheral vein / Unknown 07/27/2025 11:12 AM EDT 07/28/2025 12:26 AM EDT Narrative [facility] - 07/28/2025 8:25 PM EDT FASTING:NO Edmond Murphy MD LAB BLOOD ORDERABLE S Final Result [facility] 200 [facility] [address] [place] [address], [facility] [address] [place] [address] from Last 3 Months Insurance [employer] PPO/EPO/IND Advance Directives Documents on File Type Date Recorded Patient [place] Expl anation Health Care Proxy 06/29/2025 2:32 PM healt h care proxy can on 06/29/2025 Health Care Proxy 09/25/2017 2:09 PM Care Teams Pocket Setter Relationship Specialty Start Date End Date Edmond Murphy MD [address] [place] [phone] PCP - General Internal Medicine 06/28/25
--- OUTSIDE RECORDS SUMMARY | 2025-09-18 07:54 | XMS_ITS | Encounter Summary ---
Author Organization [facility] Address [address] [place] [address] Phone Care Team Providers Care Operating Systems Programmer Name Role Phone Anca Antonio MD Primary Care Provider [phone] Reason for Visit * Reason Comments Med Refill Encounter Details Date Type Department Care Team (Late st Contact Info) Description 05/17/2021 Refill Child [facility] [address] [phone] Anca Antonio MD [address] [place] [phone] Bronchospasm Social History Tobacco Use Types Packs/Day Years Used Date Smoking Tobacco: Never Smokeless Tobacco: Never Alcohol Use Standard Drinks/Week Comments Never 0 (1 standard drink = 0.6 oz pur e alcohol) Hunger/Food Answer Date Recorded In the last 12 months, did y ou or your family ever eat less than you felt you should because there wasn't enough money for food? No 04/25/2021 Stable Housing Answer Date Recorded Are you worried that in the next 2 months you may not have stable housing? No 04/25/2021 Transportation Concerns Answer Date Rec orded In the last 12 months, have you or your family ever had to go without healthcare because you didn't have a way to get there? No 04/25/2021 Hazards in Home Answer Date Recorded Think about the place you li ve. Do you have problems with any of the following? Pests (mice or roaches), mold, no/not working smoke detectors, water leaks, no window guards. No 2020 Financing Utilities Answer Date Recorde d In the last 12 months, has t he electric, gas, oil, or water company threatened to shut off your services in your home? No 04/25/2021 Safety at Home Answer Date Recorded Are you or your family worried about feeling saf e in your home? No 04/25/2021 Outside Support Answer Date Recorded Do you feel that you need mo re support from other people or programs to help you care for yourself or your family? No 04/25/2021 Understanding Health Concerns Answer Da te Recorded Do you need help understandi ng your or your child's healthcare needs (diagnosis, medications, plan, etc.)? No 04/25/2021 Financing Health Concerns Answer Date R ecorded In the last 12 months, was t here a time when your child needed to see a doctor or get medications or supplies but could not because of cost? No 04/25/2021 Missing School or Work Answer Date Faizan rded Did you or your child miss s chool or work because of a health problem that could have been avoided? No 04/25/2021 Comments Unknown Sex and Gender Information Value Date Recorded Sex Assigned at Not on file Legal Sex Female 6:32 PM EDT Gender Identity Female 11/23/2022 9:44 AM EST Sexual Orientation Straight 02/10/2020 12 :46 PM EDT documented as of this encounter Miscellaneous Notes * Telephone Encounter - Bozena Marks RN - 05/17/2021 12:35 PM EDT Pt has another refill on her med. documented in this encounter Plan of Treatment Not on file documented as of this encounter Visit Diagnoses Diagnosis Bronchospasm Acute bronchospasm documented in this encounter Care Teams Operating Systems Programmer Relationship Specialty Start Date End Date Anca Antonio MD [address] [place] [phone] PCP - General 03/26/18 05/04/25 documented as of this encounter
--- OUTSIDE RECORDS SUMMARY | 2025-09-18 07:54 | XMS_ITS | Encounter Summary ---
Author Organization [facility] Address [address] [place] [address] Care Team Providers Care Model Engine Mechanic Name Role Phone Edmond Murphy MD Primary Care Provi james Encounter Details Date Type Department Care Team (Late st Contact Info) Description 07/30/2025 Results Follow-Up [facility] Internal Medicine [address] [place] [address] [phone] Edmond Murphy MD [address] [place], [place] [phone] Social History Tobacco Use Types Packs/Day Years Used Date Smoking Tobacco: Never Smokeless Tobacco: Never Comments:: Alcohol Use Standard Drinks/Week Comments Yes 0 (1 standard drink = 0.6 oz pur e alcohol) [facility] Utilities Answer Date Recorded In the past 12 months has [employer], gas, oil, or water [employer] threatened to shut off services in your [...] Miscellaneous Notes * Result Encounter Note - Edmond Murphy MD - 07/30/2025 10:30 AM EDT Results reviewed CBC, CMP,TSH Hepatitis B screening- non reactive, immunity present Hepatitis C screening- non reactive Chlamydia/Gonorrhea/RPR- negative HIV- negative Varicella- no immunity documented in this encounter Plan of Treatment Upcoming Encounters Date Type Department Care Team (Late st Contact Info) Description 08/30/2026 8:20 AM EDT Follow-Up [facility] 4th floor Cardiology Medicine [address] [place] [phone] [employer] Floor Supervisor: Barry Elias MD [address] [place] [phone] documented as of this encounter Visit Diagnoses Not on filedocumented in this encounter Care Teams Model Engine Mechanic Relationship Specialty Start Date End Date Edmond Murphy MD [address] [place] [id number] PCP - General Internal Medicine 06/28/25 documented as of this encounter
--- OUTSIDE RECORDS SUMMARY | 2025-09-18 07:54 | XMS_ITS | Encounter Summary ---
Author Organization [facility] Address [address] [place] [address] Care Team Providers Care Graphite Grinder Name Role Phone Anca Antonio Primary Care Provider Encounter Details Date Type Department Care Team (Late st Contact Info) Description 10/29/[address] [facility] [address] [place] [phone] Bhavna Smart NP [address] [place] [address] Social History Tobacco Use Types Packs/Day Years [...] AM EST documented as of this encounter Progress Notes * Kaia Mejia NP - 10/31/2017 9:46 AM EST Negative strep noted documented in this encounter Plan of Treatment Not on file documented as of this encounter Procedures * Due to [place] state law, this organization might not be sharing negative HIV tests. Procedure Name Priority Date/Time Associated Diagnosis Comments STREPTOCOCCUS, GROUP A CULTURE Routine 10/29/2017 8:08 PM EST Sore throat documented in this encounter Results * Due to [place] state law, this organization might not be sharing negative HIV tests. * STREPTOCOCCUS, GROUP A CULTURE (10/29/2017 8:08 PM EST) Culture, Streptococci Group A, Throat SEE NOTE [facility] Comment: STREPTOCOCCUS, GROUP A CULTURE MICRO NUMBER: [id number] TEST STATUS: FINAL SPECIMEN SOURCE: NOT GIVEN SPECIMEN QUALITY: ADEQUATE RESULT: No group A Streptococcus isolated 10/29/2017 8:08 PM EST 10/29/2017 11:58 PM EST Narrative Resulting Agency Comment [id number] Bhavna Smart NP LABORATORY Final Result Performing Organization Address City/State/[facility] Co de Phone Number [facility] [address] [place] [address] documented in this encounter Visit Diagnoses Diagnosis Sore throat Acute pharyngitis documented in this encounter Care Teams Graphite Grinder Relationship Specialty Start Date End Date Anca Antonio [facility] [address] [address] PCP - General Pediatrics 11/25/13 documented as of this encounter
--- OUTSIDE RECORDS SUMMARY | 2025-09-18 07:54 | XMS_ITS | Patient Health Record ---
Author Organization [facility] Address [address] [facility] [address] [place] [address] Care Team Providers Care Induction Machine Setter Name Role Phone ERIN FISEHR MD Primary Care Provider UnavailTavo Montelongo Unavailable [phone] Migration, Provider Unavailable Unavailable Allergies Allergen (clinical drug ingredient) Drug/Non Drug Allergy documented on EMR Reaction Allergy Type Onset Date Status hydrocortisone Hydrocortisone Unknown Drug Allergy Active Propylene Glycol Unknown Drug Allergy Active Reason For Referral No Information Medications Medication SIG (Take, Route, Fr equency, Duration) Notes Start Date End Date Status Omeprazole 20 MG 1 cap(s) orally once a day,take 30min before dinner; Duration: 30 days 01/10/2024 Active FLUoxetine HCl 40 MG 1 cap(s) orally onc e a day; Duration: 30 day(s) 12/17/2023 Active LORazepam 0.5 MG TAKE 1 TABLET BY SHANELL NEEDED FOR PANIC ATTACKS; Duration: 5 Days Active Social History Alcohol Screen Question Answer Notes Did you have a drink contain ing alcohol in the past year? Yes has not been drinking recent ly Encounters Encounter Location Date Provider Diagnosis [facility] [address] [place] [phone] 03/27/2025 Provider Migration Plan Of Treatment Pending Test Test Name Order Date Colonoscopy\mac 12/17/2023 EGD/MAC 12/17/2023 Insurance Providers Payer Name Payer Address Payer Phone Subscriber Number Group Number Insured Name Patient Relationship to Insured Coverage Start Date Coverage End Date [facility] [id number] JOANNE Montalvo [phone] [id number] MEGAN CERVANTES Child - Insured has Financial Responsibility Medical (General) History Medical History History ICD Code HTN Anxiety OCD Surgical History Surgery Date(Month/Year) Foot surgeries [place] teeth
--- OUTSIDE RECORDS SUMMARY | 2025-09-18 07:54 | XMS_ITS | Encounter Summary ---
Author Organization [facility] Address [address] [place] [address] Care Team Providers Care Dynamo Tender Name Role Phone Edmond Murphy MD Primary Care Provi james Encounter Details Date Type Department Care Team (Late st Contact Info) Description 07/29/2025 [employer] Message Intial Department [address] [place] [address] [employer], Generic Provider [address] [place], [place] [phone] Questionnaire Submission Social History Tobacco Use Types Packs/Day Years Used Date Smoking Tobacco: Never Smokeless Tobacco: Never Comments:: Alcohol Use Standard Drinks/Week Comments Yes 0 (1 standard drink = 0.6 oz pur e alcohol) [facility] Utilities Answer Date Recorded In the [...] on file documented as of this encounter Plan of Treatment Upcoming Encounters Date Type Department Care Team (Late st Contact Info) Description 08/30/2026 8:20 AM EDT Follow-Up [facility] 4th floor Cardiology Medicine [address] [place] [address] [phone] Municipal Services Manager: Barry Elias MD [address] [place] [phone] documented as of this encounter Visit Diagnoses Not on filedocumented in this encounter Care Teams Dynamo Tender Relationship Specialty Start Date End Date Edmond Murphy MD [address] [place] [phone] PCP - General Internal Medicine 06/28/25 documented as of this encounter
--- OUTSIDE RECORDS SUMMARY | 2025-09-18 07:54 | XMS_ITS | Encounter Summary ---
Author Organization [facility] Address [address] [place], [place] [phone] Phone Care Team Providers Care Floor Covering Printer Assistant Name Role Phone Anca Antonio MD Primary Care Provider [phone] Encounter Details Date Type Department Care Team (Late st Contact Info) Description 10/03/2017 [facility] [address] [phone] Anca Antonio MD [address] [place] [phone] Social History Tobacco Use Types Packs/Day Years Used Date Smoking Tobacco: Never Smokeless Tobacco: Never Alcohol Use Standard Drinks/Week Comments Yes 2 (1 standard drink = 0.6 oz pur e alcohol) Comments Unknown Sex and Gender Information Value Date Recorded Sex Assigned at Not on file Legal Sex Female 6:32 PM EDT Gender Identity Female 11/23/2022 9:44 AM EST Sexual Orientation Straight 02/10/2020 12 :46 PM EDT documented as of this encounter H&P Notes * Anca Antonio MD - 10/03/2017 3:00 PM EST PREOPERATIVE HISTORY AND PHYSICAL SURGERY: TRANSPLANT OF TENDON OF LOWER LEG SECONDARY REPAIR OF FLEXOR TENDON OF FOOT WITHOUT FREE GRAFT ADVANCEMENT OF POSTERIOR TIBIAL TENDON WITH EXCISION OF ACCESSORY TARSAL NAVICULAR BONE CHIEF COMPLAINT/DIAGNOSIS: Rupture of left posterior tibialis tendon, HISTORY OF PRESENT ILLNESS: 17 yr old female with hx injured her left ankle September 04, 2017 playing soccer. Her left ankle MRI was reviewed that showed the the posterior tendon avulsion injury. SURGEON: Dr. Trotter DATE: Surgery :10/07/2017 PAST MEDICAL HISTORY: No past medical history on file. Patient Active Problem List Diagnosis - Contact dermatitis - Eczema - Hand pain - Buckle fracture of radius - Hematochezia - Diarrhea - Gastroesophageal reflux disease, esophagitis presence not specified - Nausea - Constipation, chronic - Irritable bowel syndrome with diarrhea - Abnormal laboratory test result - Health counseling PAST SURGICAL HISTORY: No past surgical history on file. MEDICATIONS: Prior to Admission medications Medication Sig Start Date End Date Taking? Authorizing Provider amoxicillin (AMOXIL) 500 mg capsule TAKE 1 CAPSULE EVERY 8 HOURS UNTIL FINISHED 06/21/17 Historical Provider, desoximetasone (TOPICORT) 0.25 % ointment 09/16/17 Historical Provider, fluticasone (FLOVENT HFA) 110 mcg inhaler Flovent HFA 110 MCG/ACT Inhalation Aerosol Quantity: 24; Refills: 0 Started -April-2014 Active 04/22/14 Historical Provider, gabapentin (NEURONTIN) 100 mg capsule TAKE 1 TWICE DAILY 09/09/17 Historical Provider, HYDROcodone-acetaminophen (VICODIN) 5-300 mg per tablet Take 1 tablet by mouth every 6 hours as needed. for pain 06/21/17 Historical Provider, ibuprofen (MOTRIN) 600 mg tablet Take 600 mg by mouth every 6 hours as needed. for pain 06/21/17 Historical Provider, mupirocin (BACTROBAN) 2% ointment 09/16/17 Historical Provider, SPRINTEC, 28, 0.25-35 mg-mcg per tablet TAKE 1 TABLET BY MOUTH EVERY DAY AT THE SAME TIME EACH DAY 09/05/17 Historical Provider, VIENVA 0.1-20 mg-mcg per tablet TAKE 1 TABLET BY MOUTH AT THE SAME TIME EVERY DAY 09/09/17 Historical Provider, POLYETHYLENE GLYCOL 3350 ORAL MIX 1 CAPFUL (17GM) IN 8 OUNCES OF WATER, JUICE, OR TEA AND DRINK DAILY. 05/01/16 Historical Provider, ALLERGIES: Cortisone; Formaldehyde; and Propylene glycol SOCIAL HISTORY: Social History Social History - Marital status: Single Spouse name: N/A - Number of children: N/A - Years of education: N/A Occupational History - Not on file. Social History Main Topics - Smoking status: Never Smoker - Smokeless tobacco: Not on file Comment: : - Alcohol use Not on file - Drug use: Not on file - Sexual activity: Not on file Other Topics Concern - Not on file Social History Narrative FAMILY HISTORY: Family History Problem Relation Age of Onset - Other Father Family history of High cholesterol /Family History of asthma Obstetric History No data available OBJECTIVE: ROS: Review of Systems Review of Systems: Psychological ROS: negative for - anxiety or depression Ophthalmic ROS: negative ENT ROS: negative Allergy and Immunology ROS:+seasonal allergies,no sleep apnea, or snoring Heme and Lymphatic ROS: negative for - bleeding problems, blood clots or anemia Endocrine ROS: negative for diabetes or thyroid problem Respiratory ROS: negative for - shortness of breath Cardiovascular ROS: negative for chest pain, Gastrointestinal ROS: negative for - heartburn, GERD,+ IBS Genito-Urinary ROS: negative Musculoskeletal ROS: negative for - back or neck pain Neurological ROS: negative for - seizures or stroke Dermatological ROS: negative for skin rash, open wound or skin cancer Other: No problems with anesthesia, no family history of problems with anesthesia VITAL SIGNS FOR PAST 24 Hours ([High] [Low] (Last Recorded Value)): Wt Readings from Last 3 Encounters: 10/03/17 59 kg (71 %, Z= 0.54)* 05/01/16 54.3 kg (66 %, Z= 0.42)* 01/31/16 54.3 kg (69 %, Z= 0.48)* * Growth percentiles are based on CDC 2-20 Years data. Temp Readings from Last 3 Encounters: 10/03/17 36.4 C (97.6 F) (Tympanic) BP Readings from Last 3 Encounters: 10/03/17 129/75 05/01/16 120/79 01/31/16 120/75 Pulse Readings from Last 3 Encounters: 10/03/17 72 05/01/16 72 01/31/16 65 SpO2 Readings from Last 3 Encounters: 10/03/17 100% Resp Readings from Last 3 Encounters: 10/03/17 16 Last menstrual period: 10/02/2017 On BCP PHYSICAL EXAM: Physical Exam General: WDWN, NAD HEENT: Sclera nonicteric Pupils are equal and round Extraocular movements intact Throat is clear, teeth intact, Neck: Supple and No carotid bruits Lungs: clear to ausculation bilaterally, no wheeze, rales or rhonchi Heart: Rate and Rhythm: regular and no murmur Abdomen: Soft, non-tender throughout and No organomegaly or masses Extremities: positive radial pulses bilaterally and no edema, symmetrical ,Left below the knee splint Skin: Warm, dry, intact Neurologic: Alert and oriented x 3 and CN II-XII grossly intact Tongue midline, speech WNL ORDERS: No orders of the defined types were placed in this encounter. PLAN: 17 yr old female scheduled for: LEFT TRANSPLANT OF TENDON OF LOWER LEG SECONDARY REPAIR OF FLEXOR TENDON OF FOOT WITHOUT FREE GRAFT ADVANCEMENT OF POSTERIOR TIBIAL TENDON WITH EXCISION OF ACCESSORY TARSAL NAVICULAR BONE Patient to see Anesthesia and surgeon preop Khang Senior NP documented in this encounter Plan of Treatment Not on file documented as of this encounter Visit Diagnoses Not on filedocumented in this encounter Care Teams Floor Covering Printer Assistant Relationship Specialty Start Date End Date Anca Antonio MD [address] [place] [phone] PCP - General 03/26/18 05/04/25 documented as of this encounter
--- OUTSIDE RECORDS SUMMARY | 2025-09-18 07:54 | XMS_ITS | Encounter Summary ---
Author Organization [facility] Address [address] [place] [address] Phone Care Team Providers Care Glycerin Operator Name Role Phone Anca Antonio MD Primary Care Provider [phone] Encounter Details Date Type Department Care Team (Late st Contact Info) Description 04/06/2018 Conversion Encounter [facility] [address] [place] [phone] Social History Tobacco Use Types Packs/Day Years [...] on filedocumented in this encounter Care Teams Glycerin Operator Relationship Specialty Start Date End Date Anca Antonio MD [address] [place] [phone] PCP - General 03/26/18 05/04/25 documented as of this encounter
--- OUTSIDE RECORDS SUMMARY | 2025-09-18 07:54 | XMS_ITS | Encounter Summary ---
Author Organization [facility] Address [address] [place] [address] Phone Care Team Providers Care Human Resources Manager Name Role Phone Anca Antonio MD Primary Care Provider [phone] Reason for Visit * Reason Comments Med Refill Encounter Details Date Type Department Care Team (Late st Contact Info) Description 09/10/2018 Refill [facility] [address] [place] [phone] Akosua Ramsay NP Bronchospasm Social History Tobacco Use Types Packs/Day [...] bronchospasm documented in this encounter Care Teams Human Resources Manager Relationship Specialty Start Date End Date Anca Antonio MD [address] [place] [phone] PCP - General 03/26/18 05/04/25 documented as of this encounter
--- OUTSIDE RECORDS SUMMARY | 2025-09-18 07:54 | XMS_ITS | Clinical Summary ---
Author Organization [facility] Address [address] [place] [address] Phone Care Team Providers Care Senior Telecommunications Consultant Name Role Phone Unavailable Primary Care Provider Unavailabl e Allergies Active Allergy Reactions Criticality Noted Date Comments [place] (Diagnostic) 11/27/2023 [place] Flavoring Agent (Non-Screening) 11/27/2023 Cortisone Rash Low Environmental 07/02/2018 Many topical agents, see scanned list Formaldehyde Rash Low Hydrocortisone Rash Low 11/25/2013 Iodine Rash High 01/28/2019 Lactose Intolerance (Gi) GI intolerance 11/27/2023 Latex 08/18/2018 Added based on information entered during case entry, please review and add reactions, type, and severity as needed Pea 11/27/2023 Propyl Glycol-Hydroxyethylcell Rash Low 11/25/2013 Propylene Glycol Rash,GI intolerance Low Shellfish Protein-Containing Drug Products 11/27/2023 Wound Dressing Adhesive Rash Low 05/09/2021 Medications Flovent HFA 110 MCG/ACT inhalerIndicatio ns:Bronchospasm INHALE 2 PUFFS 2 (TWO) TIMES A DAY. RINSE MOUTH WITH WATER AFTER USE, DO NOT SWALLOW. 1 Units 1 1 Active albuterol (2.5 MG/3ML) 0.083% nebulizer solutionIndicati ons:Bronchospasm Take 3 mL (2.5 mg total) by nebulization every 4 (four) hours as needed for wheezing or shortness of breath. 3 mL 1 2 Active Levonorgestrel (Mirena, 52 MG,) 20 MCG/DAY intrauterine device Active EPINEPHrine 0.3 MG/0.3ML injection syringe DIRECTED INJECTION NEEDED FOR ANAPHYLAXIS 30 DAYS 3 Active LORazepam 0.5 MG tablet TAKE 1 TABLET BY MOUTH NEEDED FOR PANIC ATTACKS Active Sodium Fluoride 5000 PPM 1.1 % paste PLEASE SEE ATTACHED FOR DETAILED DIRECTIONS 3 Active FLUoxetine 40 MG capsule Active albuterol HFA 108 (90 Base) MCG/ACT inhalerIndicatio ns:Bronchospasm Inhale 2 puffs every 4 (four) hours as needed for wheezing or shortness of breath. 1 Units 2 5 026 Active clindamycin 1 % lotion APPLY TO AFFECTED AREAS ON FACE TWICE A DAY X 4 WEEKS THEN NEEDED FOR FLARES. 5 Active fluocinonide 0.05 % external solution APPLY 2-10 DROPS TO AFFECTED AREA ON SCALP EVERY DAY FOR 30 DAYS, THEN NEEDED FOR FLARE UPS 5 Active hydrOXYzine 10 MG tablet TAKE 1 TABLET BY MOUTH BY MOUTH EVERY DAY NEEDED FOR ANXIETY. CAN TAKE UP TO 2 TABS AT BEDTIME 5 Active omeprazole 20 MG delayed-release capsule TAKE 1 CAPSULE BY MOUTH EVERY DAY 30 MINUTES BEFORE DINNER 4 Active triamcinolone 0.1 % ointment APPLY DAILY TO SKIN TO AFFECTED AREA TWICE A DAY FOR 2 WEEKS 4 Active FLUoxetine 10 MG capsule Take by mouth once daily. 5 Active Active Problems Patient Care Coordination No te Formatting of this note migh t be different from the original. Age out letter sent 02/05/25. T/O 05/08/25 Problem Noted Date Diagnosed Date COVID-19 07/14/2022 Overview (07/15/2022): Pt reports positive home covid test on 07/15/22. Sx started on 07/14/22. Anxiety 01/18/2021 Constipation, chronic 05/01/2016 Irritable bowel syndrome with diarrhea 6 Asthma 04/23/2012 Exercise-induced bronchospasm 05/11/2011 Allergy 05/10/2010 Resolved Problems Problem Noted Date Diagnosed Date Resolved Date Contact with and (suspected) exposure to covid-19 09/05/2021 11/08/2021 Excessive or frequent menstruation 09/05/2017 02/10/2020 Assessment & Plan (07/02/2018 8:37 PM EDT): Consistent BTB on Aviane, usually in week 2 (although this month was in week 3). Had vomiting on Sprintec. Discussed options, agree to trial Apri for both inc estrogen (should reduce BTB) and inc progestin (should improve cramps). Will complete current pill pack and then start Apri. -Discussed possibility of different SEs on different OCP; advised to monitor moods. Family will call with concerns. -Continue to monitor for ACHES, abstain from smoking. Condom use discussed. -RTC in 3 months, call sooner with questions/concerns. Abnormal laboratory test result 05/01/2016 02/10/2020 Gastroesophageal reflux disease 12/20/2015 02/10/2020 Hematochezia 12/20/2015 02/10/2020 Torus fracture of radius 04/08/2015 Concussion 08/06/2014 04/11/2022 Eczema 12/12/2009 02/10/2020 Immunizations Immunization Administration Dates Next Due COVID-19 Pfizer, monovalent, 12+ years 1,02/18/2021 DTaP 03/15/2006, 3,2002,06/12,2002 HPV Vaccine 9 Valent 05/10/2016 HPV, Quadrivalent 05/09/2015,05/07/2014 Hep A 05/09/2015,05/07/2014 Hep B 2002,2002,2002 HiB 05/19/2003, 2,2002,04/07 IPV 03/15/2006, 3,2002,04/07 Influenza 08/16/2014,12/15/2012 Influenza, injectable, MDCK, preservative free, quadrivalent 07/08/2023,10/13/2022 Influenza, injectable, quadr ivalent, preservative free 10/25/2021,10/17/2020,02/10/2020,01/28 MMR 04/16/2007,02/12/2003 Meningococcal Conj (Menactra) MCV4P 01/28/2019,0 04/27/2013 Pneumococcal Conjugate 05/19/2003,2001,2002,04/07 Pneumococcal Polysaccharide 10/25/2021 Td (adult) (MBL), 2 Lf tetan us toxoid, PF, adsorbed 02/10/2020 Tdap 09/24/2023,04/27/2013 Varicella 04/16/2007,02/12/2003 Family History Relation Name Status Comments Other : Parents esme al status: * Family history of asthma (Father) * Family history of high blood pressure (Paternal Grandfather) * Family history of environmental related allergies (Mother,Paternal Grandfather) * Family history of high cholesterol (Father,Paternal Grandfather) Social History Tobacco Use Types Packs/Day Years Used Date Smoking Tobacco: Never Smokeless Tobacco: Never Tobacco Cessation:Counseling Given: Yes Alcohol Use Standard Drinks/Week Comments Yes 2 [...] the last 12 months, has t he [place] [employer], gas, oil, or water [employer] threatened to shut off your services in [...] Orientation Straight 02/10/2020 12 :46 PM EDT Last Filed Vital Signs Vital Sign Reading Time Taken Comments Blood Pressure 126/62 11/26/2023 3:08 PM EST Pulse 72 11/26/2023 3:08 PM EST Temperature 36.9 C (98.5 F) 04/11/2022 4:06 PM EDT Respiratory Rate 20 08/19/2018 4:20 PM EDT Oxygen Saturation 99% 08/19/2018 4:20 PM EDT Inhaled Oxygen Concentration - - Weight 62.5 kg (137 lb 12.8 oz) 11/26/2023 3:08 PM EST Height 169.5 cm (5' 6.75 ) 11/26/2023 3:08 PM ES T Body Mass Index 21.74 11/26/2023 3:08 PM EST Plan of Treatment Health Maintenance Due Date Last Done Comments Men B Vaccine (1 of 2 - Standard) 2018 Influenza Vaccines (#1) 2025 08/14/20 24, 07/08/2023, 10/13/2022, Additional history exists COVID-19 Vaccine (2024-2 6 season) 2025 08/14/2024, 07/08/2023, 10/13/2022, Additional history exists DTaP,Tdap,and Td Vaccines (9 - Td or Tdap) 09/24/2033 09/24/2023, 02/10/2020, 04/27/2013, Additional history exists HIB Vaccines Completed 05/19/2003, 07/20, 2002, Additional history exists IPV Vaccines Completed 03/15/2006, 07/20, 2002, Additional history exists MMR Vaccines Completed 04/16/2007, 02/12/2003 Varicella Vaccines Completed 04/16/2007, 02/12/2003 Hepatitis A Vaccines Completed 05/09/2015, 05/07/20 14 HPV Vaccines Completed 05/10/2016, 04/19, 05/07/2014 Meningococcal Vaccine Completed 01/28/2019, 013 Pneumococcal Vaccine Completed 10/25/2021, 05/19/2003, 2002, Additional history exists Hepatitis B Vaccines Completed 02/15/2025, 2002, 2002, Additional history exists Procedures * Due to [place] [employer] law, this organization might not be sharing sensitive test results. Procedure Name Priority Date/Time Associated Diagnosis Comments CHLAMYDIA TRACHOMATIS, AMPLIFIED Routine 02/10/2020 1:10 PM EDT Well adult exam from Last 3 Months or Most Recently Relevant to Health Maintenance Results * Due to [place] [employer] law, this organization might not be sharing sensitive test results. * Chlamydia trachomatis, Amplified (02/10/2020 1:10 PM EDT) Chlamydia trachomatis RNA, TMA NOT DETECTED NOT DETECTED [employer] [place] [employer] Comment: The analytical performance characteristics of this assay, when used to test SurePath(TM) specimens have been determined by [facility]. The modifications have not been cleared or approved by the FDA. This assay has been validated pursuant to the CLIA regulations and is used for clinical purposes. For additional information, please refer to https://education.[employer]/faq/XST636 (This link is being provided for information/ educational purposes only.) Urine (Urine, Random (not clean void)) 02/10/2020 1:10 PM EDT 02/10/2020 10:38 PM EDT Narrative Resulting Agency Comment Performing Organization Information: Site ID: [id number] Name: [facility] [place] [employer] Address: [address] [place] [address], [place] [address] Director: Salim E Kabawat us Anca Antonio MD LAB MICROBIOLOGY - GENERAL ORDER MAIA Final Result [facility] from Last 3 Months or Most Recently Relevant to Health Maintenance Insurance
[2025-09-18 08:25] VITALS: BP 119/73; PULSE 95; RESP 14; O2SAT 99
[2025-09-18 08:26] LABS: Resp Syncy Virus RNA Qual PCR NEGATIVE (Negative); SARS COV2 PCR INHOUSE NEGATIVE (Negative)
--- NOTE | 2025-09-18 08:42 | PC.NURSE ---
Pt reports feeling better and request to go home, states I dont think I want the CT scan Dr Ding aware. PO trial at this time
[2025-09-18 09:27] VITALS: BP 119/73; PULSE 95; RESP 14; TEMP -17.7; TEMP 0; O2SAT 99
== END 2025-09-18 09:30 | disposition home or self-care (01) ==
PROVIDERS: Emergency Provider Emergency Medicine Emergency Medical Services
DX: F41.9 Anxiety disorder, unspecified (principal); R11.2 Nausea with vomiting, unspecified; R10.13 Epigastric pain; Z03.818 Encounter for observation for suspected exposure to other biological agents ruled out
CPT/HCPCS: 80076; 81001; 81025; 83690; 85025; 87637; 96361; 96374; 99284; J1790